=== PATIENT | male | born 1930 | race Caucasian/White ===

== ENCOUNTER 2017-06-13 10:19 | Inpatient (IN) | payer OTHER, MEDICARE ==
[~2017-06-13] VITALS: Ht 167.6 cm; Wt 77.0 kg
[2017-06-13] MEDS ORDERED: ALUMINUM/MAGNESIUM/SIMETH (MAALOX MAX) 30 ML UDC PO PRN (11:45)
[2017-06-13] MEDS ORDERED: ONDANSETRON INJ 2 MG/ML 2 ML VIAL IV PRN (11:45)
[2017-06-13] MEDS ORDERED: MAGNESIUM HYDROXIDE SUSP 30 ML UDC PO PRN (11:45)
[2017-06-13 11:53] VITALS: BP 125/73; PULSE 76; TEMP 36.5; O2SAT 95
[2017-06-13] MEDS ORDERED: POLYETHYLENE (MIRALAX) 17 GM PACK PO PRN (12:00)
[2017-06-13 12:05] VITALS: BP 125/73; PULSE 76; TEMP 36.5; Ht 167.6 cm; Wt 77.0 kg
--- NOTE | 2017-06-13 13:30 | History and Physical ---
History & Physical Date & Time of Service: Jun 13, 2017 at 12:45 Chief Complaint: Altered Mental Status Primary Care Physician: Parth Huston M.D. History of Present Illness Source: patient, hospital records 86 y/o M - history of HTN, hyperthyroidism, CKD, BPH, dementia. Presents as a direct admission from [facility]. Initially presented to [facility] due to reported confusion and progressive weakness. The pt, per EMS, was disheveled and covered in urine and feces when they picked him up at home. Initial labs indicated dehydration, ARF and rhabdomyolysis. The pt denies all symptoms aside from pain in the joints of his lower extremities which he states is chronic. He is not a reliable historian and cannot contribute meaningfully to the HPI. Past Medical/Surgical History 1) HTN 2) BPH 3) Hyperthyroidism 4) Lower extremity insufficiency and edema 5) CKD - unspecified Family History Could not obtain Social History Does not smoke or drink Smoking Status: Unknown if Ever Smoked Allergies Coded Allergies: Tramadol (Verified Allergy, Unknown, RASH, 06/13/17) Home Medications Scheduled Carvedilol (Coreg), 1 TAB PO BID Hydrochlorothiazide (Hydrochlorothiazide), 1 TAB PO DAILY Oxybutynin Chloride (Ditropan), 2 TAB PO BID Miscellaneous Medications Methimazole (Methimazole ) Tamsulosin HCl (Tamsulosin HCl) Review of Systems Pt cannot recall previous symptoms and did not know why he was in the hospital - as above, he c/o lower extremity pain only. Physical Exam Vital Signs Date Time Temp Pulse Resp B/P (MAP) Pulse Ox O2 Delivery O2 Flow Rate FiO2 06/13/17 12:05 36.5 76 16 125/73 Room Air 06/13/17 11:53 36.5 76 16 125/73 (90) 95 Room Air General Appearance: + pertinent finding (Pleasant, overweight, elderly male in no distress - Pt is talkative and in high-spririted) Head: normocephalic Eyes: normal inspection, EOMI ENT: + pertinent finding (Poor dentition) Neck: supple, no JVD Respiratory/Chest: chest non-tender, lungs clear, normal breath sounds Cardiovascular: no edema, no gallop, + irregularly irregular Abdomen/GI: normal bowel sounds, non tender, soft Back: normal inspection, no CVA tenderness Extremities/Musculoskelatal: + pedal edema, + pertinent finding (Stasis changes of the lower extremities, multiple ulcers of the feet, some of which are necrotis - no exudate or overt cellulitis) 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 Presents as a direct admission from [facility]. Initially presented to [facility] due to reported confusion and progressive weakness. The pt, per EMS, was disheveled and covered in urine and feces when they picked him up at home. Initial labs indicated dehydration, ARF and rhabdomyolysis. The pt denies all symptoms aside from pain in the joints of his lower extremities which he states is chronic. He is not a reliable historian and cannot contribute meaningfully to the HPI. 1) ARF, dehydration - Received IVF for several hours prior to transfer. Initial creat was 3.6, njow 2.8 - we do not have a baseline at present and suspect underlying CKD. We will continue IVF, hold diuretics and trend BMP. Urine lytes will be ordered. 2) Rhabdomyolysis - Initial CK 2600, now 595 - cont IVF - recheck AM. 3) HTN - Cont Carvedilol 4) Hyperthyroidism - Cont Methimazole - will check TSH 5) BPH - cont Flomax 6) Foot ulcers with necrosis - will consult wound care and podiatry or ortho. 7) Anemia - no evidence of bleeding - suspected chronic - will trend 8) At the time of admission, we have not received a call from the pt's family. It was apparently requested that the pt be placed in a nursing facility. Per sign out from [facility], he lives with a son who suffers from cognitive dysfunction. Full code - Heparin prophylaxis Total time for this admit including review of labs, meds, outside records - discussion with pt and transferring attending - 38 min Level of Care Med/Surg Advanced Directives Existing Living Will: Yes Existing Power of Server Manager: Yes Resuscitation Status FULL RESUSCITATION VTE Prophylaxis VTE Risk Assessment Done? Y/N: Yes Risk Level: Low Given or contraindicated: Unfractionated heparin SQ
[2017-06-13] MEDS ORDERED: PATIENT'S ALLERGY INFO NEEDS ENTERED SCH (13:45)
[2017-06-13] MEDS ORDERED: CARV25TA2 PO (14:21)
[2017-06-13] MEDS ORDERED: DTR/5 PO (14:21)
[2017-06-13] MEDS ORDERED: FLM4 (14:21)
[2017-06-13] MEDS ORDERED: HYDR12.55 PO (14:21)
[2017-06-13] MEDS ORDERED: METH-589 (14:21)
[2017-06-13] MEDS: SODIUM CHLORIDE 0.9% 1000ML 1,000 ML IV SCH (14:33)
[2017-06-13 15:57] VITALS: BP 126/61; PULSE 90; TEMP 36.8; O2SAT 98
[2017-06-13] MEDS: CARVEDILOL 25 MG TAB PO SCH (20:39)
[2017-06-13] MEDS: OXYBUTYNIN CHLORIDE 5 MG TAB PO SCH (20:39)
[2017-06-13 22:07] LABS: CREATININE RANDOM URINE 42.6 mg/dl
[2017-06-14 00:06] VITALS: BP 114/64; PULSE 78; TEMP 37; O2SAT 98
[2017-06-14] MEDS: SODIUM CHLORIDE 0.9% 1000ML 1,000 ML IV SCH (03:05)
[2017-06-14 06:49] LABS: BLOOD UREA NITROGEN 62 mg/dl (7-18); CALCIUM 8.6 mg/dl (8.5-10.1); CARBON DIOXIDE 18 mmol/L (21-32); CREATININE 2.17 mg/dl (0.60-1.40); GLUCOSE 131 mg/dl (70-99); POTASSIUM 4.1 mmol/L (3.5-5.1); SODIUM 146 mmol/L (136-145)
[2017-06-14 07:00] LABS: PHOSPHORUS 2.5 mg/dl (2.5-4.9)
[2017-06-14] MEDS: METHIMAZOLE 5 MG TAB PO SCH (07:39)
[2017-06-14] MEDS: TAMSULOSIN HCL 0.4 MG CAP PO SCH (07:39)
[2017-06-14] MEDS: OXYBUTYNIN CHLORIDE 5 MG TAB PO SCH ×2 (07:40→20:31)
[2017-06-14] MEDS: CARVEDILOL 25 MG TAB PO SCH ×2 (07:40→20:32)
[2017-06-14 07:46] VITALS: BP 121/56; PULSE 95; TEMP 36.7; O2SAT 99
[2017-06-14] MEDS ORDERED: VANCOMYCIN INJ 1,000 MG in SODIUM CHLORIDE 0.9% 250ML 250 ML IV STA (10:14)
[2017-06-14] MEDS ORDERED: VANCOMYCIN INJ 2,000 MG in SODIUM CHLORIDE 0.9% 500ML 500 ML IV STA (10:43)
[2017-06-14] MEDS ORDERED: VANCOMYCIN CONSULT ACTIVE PRN (10:45)
[2017-06-14 11:26] VITALS: BP 173/71; PULSE 92; TEMP 37; O2SAT 98
--- NOTE | 2017-06-14 12:04 | DIAGNOSTIC IMAGING REPORT ---
FOOT MIN 3 VIEWS ROUTINE CLINICAL HISTORY: r/o osteomyelitis pain COMPARISON: None. DISCUSSION: Severe degenerative change of all major osseous structures. Hypertrophic bony formation about the metatarsophalangeal and interphalangeal joint of the great toe. No well-defined lytic or blastic process. Mild soft tissue edema. Heel spur. Generalized decrease in bony mineralization. There is no evidence for soft tissue swelling. IMPRESSION: Severe degenerative change. No definitive evidence for osteomyelitis. The above report was generated using voice recognition software. It may contain grammatical, syntax or spelling errors. Electronically signed by: Gilbert Nails M.D. 06/14/2017 12:03 PM Dictated Date/Time: 06/14/2017 12:02 PM
[2017-06-14] MEDS: CEFTRIAXONE SOD INJ 2,000 MG in DEXTROSE 5% 50ML 50 ML IV SCH (12:21)
--- NOTE | 2017-06-14 14:19 | DIAGNOSTIC IMAGING REPORT ---
ART DOP LOWER EXT BILAT CLINICAL HISTORY: lack of pedal pulses COMPARISON STUDY: Findings: Monophasic waveforms throughout the arterial structures bilaterally. Increased velocities of the proximal superficial femoral arteries. Calcified plaque formation bilaterally. High-grade stenosis and/or occlusion right popliteal artery. Occlusion right peroneal as well as left posterior tibial artery. Blood pressure indices could not be obtained due to patient motion and a permanent bones/skin ulcerations. IMPRESSION: 1. High-grade arterial occlusive change throughout all major arterial structures of the thigh and lower legs. 2. Focal occlusion and distal partial reconstitution right popliteal artery 3. Probable occlusion right peroneal and left posterior tibial arteries. 4. Dampened blood flow characteristics from the knees to ankles bilaterally. The above report was generated using voice recognition software. It may contain grammatical, syntax or spelling errors. Electronically signed by: Gilbert Nails M.D. 06/14/2017 2:17 PM Dictated Date/Time: 06/14/2017 2:14 PM
[2017-06-14 15:47] VITALS: BP 142/65; PULSE 99; TEMP 36.8; O2SAT 98
--- NOTE | 2017-06-14 16:07 | Hospitalist Progress Note ---
Hospitalist Progress Note Date of Service Jun 14, 2017. (Nury Glez CRNP) Subjective Pt evaluation today including: conversation w/ patient, physical exam, chart review, lab review Voiding: no voiding problems Mr. Ramirez does not have complaints. He cannot feel any pain from his toe wound ROS Constitutional: no chills, aches, sweats or fever Respiratory: no sob,cough, sputum, or wheezing Cardiac: no chest pain, palpitations, edema, orthopnea or lightheadedness GI: no abdominal pain, nausea, vomiting, diarrhea or constipation : no dysuria or hesitancy Extremities: no joint pain or weakness Skin: no rash All other systems reviewed and negative (Nury Glez CRNP) Medications Medications Administered Medications (Trade) Dose Ordered Sig/Carina Route Start Time Stop Time Status Last Admin Dose Admin Sodium Chloride 1,000 ml @ 80 mls/hr [id number] IV 06/13/17 14:15 06/14/17 15:14 DC 06/14/17 03:05 80 MLS/HR Carvedilol (Coreg Tab) 25 mg BID PO 06/13/17 21:00 07/13/17 20:59 06/14/17 07:40 25 MG Oxybutynin Chloride (Ditropan Tab) 10 mg BID PO 06/13/17 21:00 07/13/17 20:59 06/14/17 07:40 10 MG Tamsulosin HCl (Flomax Cap) 0.4 mg DAILY PO 06/14/17 09:00 07/14/17 08:59 06/14/17 07:39 0.4 MG Methimazole (Methimazole Tab) 5 mg DAILY PO 06/14/17 09:00 07/14/17 08:59 06/14/17 07:39 5 MG Ceftriaxone Sodium 2000 mg/ Dextrose 70 ml @ 100 mls/hr Q24H IV 06/14/17 11:00 07/26/17 10:59 06/14/17 12:21 100 MLS/HR Vancomycin HCl 2000 mg/Sodium Chloride 540 ml @ 200 mls/hr NOW STAT IV 06/14/17 10:43 06/14/17 13:24 DC 06/14/17 12:21 200 MLS/HR (Nury Glez CRNP) Objective Vital Signs Date Time Temp Pulse Resp B/P (MAP) Pulse Ox O2 Delivery O2 Flow Rate FiO2 06/14/17 12:00 Room Air 06/14/17 11:26 37.0 92 20 173/71 (105) 98 06/14/17 08:00 Room Air 06/14/17 07:46 36.7 95 20 121/56 (77) 99 06/14/17 00:06 37.0 78 18 114/64 (81) 98 Room Air 06/14/17 00:00 Room Air 06/13/17 16:00 Room Air 06/13/17 15:57 36.8 90 16 126/61 (82) 98 Room Air (Nury Glez CRNP) Physical Exam Notes: General: no distress Eyes: normal inspection, PERLL Respiratory: chest non tender, clear to auscultation, normal breath sounds, no respiratory distress, no accessory muscle use Cardiac: regular rate and rhythm, no rub or gallop, no murmur, no edema, no jvd GI/: active bowel sounds, no abd pain or tenderness, soft, non distended Extremities: normal range of motion, normal strength, non tender Neuro/Psych: alert and oriented x 3, normal mood and affect Skin: normal color, dry, left great toe purulent drainage following removal of eschar, stage two bilateral buttocks decubitus (Nury Glez CRNP) Laboratory Results Last 24 Hours Test 06/13/17 20:41 06/14/17 05:59 Urine Random Creatinine 42.6 mg/dl Urine Random Sodium 94 mEq/L Hemoglobin 10.7 g/dL Sodium Level 146 mmol/L Potassium Level 4.1 mmol/L Chloride Level 117 mmol/L Carbon Dioxide Level 18 mmol/L Anion Gap 11.0 mmol/L Blood Urea Nitrogen 62 mg/dl Creatinine 2.17 mg/dl Est Creatinine Clear Calc Drug Dose 23.0 ml/min Estimated GFR () 30.4 Estimated GFR (Non- 26.2 BUN/Creatinine Ratio 28.6 Random Glucose 131 mg/dl Calcium Level 8.6 mg/dl Phosphorus Level 2.5 mg/dl Magnesium Level 1.7 mg/dl Thyroid Stimulating Hormone (TSH) < 0.005 uIu/ml Free Thyroxine 1.79 ng/dl (Nury Glez CRNP) Assessment and Plan Mr. Ramirez is an 86 year old man here for confusion, weakness, dehydration, left toe infection, ARF, and rhabdomyolysis ARF, dehydration - Initial creat was 3.6, now 2.17 - we do not have a baseline at present and suspect underlying CKD. - patient received two bags of gentle IVF - hold on further as patient is taking po - repeat prp in am Cellulitis vs osteomyelitis left great toe, foot ulcers, sacral decubitus - Wound care - consult ortho - Foot x ray did not show osteomyelitis - MRI PVD - multiple areas of arterial occlusion on LE arterial US, no palpable pedal pulses, - consult vascular surgery Rhabdomyolysis - Initial CK 2600, now 595 - recheck ck tonight and am HTN - Cont Carvedilol Hyperthyroidism - TSH .005, T4 1.79 - likely patient was not compliant with medications - continue methimazole and recheck in a few weeks of constant dosing BPH - cont Flomax Anemia - no evidence of bleeding - suspected chronic - will trend Dispo: PT/OT ordered, CM. Given patient's situation he was found in, seems likely that he will need placement on discharge. Full code (Nury Glez CRNP) i personally examined pt and verified all cueto points jose ALBERT no new complaints. as above vitals noted, laying in bed, buttocks ulcers fortunately fairly shallow, foot ulcerations appearing deep and necrotic failure to thrive at home -uncertain home situation, but with ulcers and presumed medication nonadherence , and significant comorbidities at this time, home environment does not appear safe to meet his needs at this point. -medically manage all as above -PT/OT, social media manager evals DVT proph -heparin SQ otherwise as above (Tesfaye Calvo D.O.)
--- NOTE | 2017-06-14 18:26 | Orthopedic Consultation ---
Orthopedic Consultation Date of Consultation: Jun 14, 2017. Attending Physician: Tesfaye Calvo D.O. Reason for Consultation: Left great toe and heel pressure sores History of Present Illness Patient presents with foot problems bilaterally Social History Smoking Status: Unknown if Ever Smoked Allergies Coded Allergies: Tramadol (Verified Allergy, Unknown, RASH, 06/13/17) Home Medications Scheduled Carvedilol (Coreg), 1 TAB PO BID Hydrochlorothiazide (Hydrochlorothiazide), 1 TAB PO DAILY Oxybutynin Chloride (Ditropan), 2 TAB PO BID Miscellaneous Medications Methimazole (Methimazole ) Tamsulosin HCl (Tamsulosin HCl) Current Inpatient Medications Current Inpatient Medications Medications (Trade) Dose Ordered Sig/Carina Route Start Time Stop Time Status Last Admin Dose Admin Acetaminophen (Tylenol Tab) 650 mg Q4H PRN PO 06/13/17 11:45 07/13/17 11:44 Al Hydrox/Mg Hydrox/Simethicone (Maalox Max Susp) 15 ml Q4H PRN PO 06/13/17 11:45 07/13/17 11:44 Magnesium Hydroxide (Milk Of Magnesia Susp) 30 ml Q6H PRN PO 06/13/17 11:45 07/13/17 11:44 Polyethylene (Miralax Powder Packet) 17 gm DAILY PRN PO 06/13/17 12:00 07/13/17 11:59 Ondansetron HCl (Zofran Inj) 4 mg Q6H PRN IV 06/13/17 11:45 07/13/17 11:44 Carvedilol (Coreg Tab) 25 mg BID PO 06/13/17 21:00 07/13/17 20:59 06/14/17 07:40 25 MG Oxybutynin Chloride (Ditropan Tab) 10 mg BID PO 06/13/17 21:00 07/13/17 20:59 06/14/17 07:40 10 MG Tamsulosin HCl (Flomax Cap) 0.4 mg DAILY PO 06/14/17 09:00 07/14/17 08:59 06/14/17 07:39 0.4 MG Methimazole (Methimazole Tab) 5 mg DAILY PO 06/14/17 09:00 07/14/17 08:59 06/14/17 07:39 5 MG Ceftriaxone Sodium 2000 mg/ Dextrose 70 ml @ 100 mls/hr Q24H IV 06/14/17 11:00 07/26/17 10:59 06/14/17 12:21 100 MLS/HR Vancomycin HCl (Consult) 1 ea UD PRN N/A 06/14/17 10:45 07/14/17 10:44 Physical Exam Date Time Temp Pulse Resp B/P (MAP) Pulse Ox O2 Delivery O2 Flow Rate FiO2 06/14/17 16:00 Room Air 06/14/17 15:47 36.8 99 20 142/65 (90) 98 Room Air 06/14/17 12:00 Room Air 06/14/17 11:26 37.0 92 20 173/71 (105) 98 06/14/17 08:00 Room Air 06/14/17 07:46 36.7 95 20 121/56 (77) 99 06/14/17 00:06 37.0 78 18 114/64 (81) 98 Room Air 06/14/17 00:00 Room Air General Appearance: no apparent distress Head: normocephalic Eyes: normal inspection Extremities/Musculoskelatal: + pertinent finding (right lower extremity demonstrates poor capillary refill chronic red discoloration of the toes consistent with peripheral vascular disease and dependent rubor type findings. Great toe has a scab area of superficial necrotic skin over the dorsal IP joint area. No drainage or signs of infection. Left foot demonstrates that there is a area of follow-up skin necrosis tip of the left great toe no drainage no erythema with chronic red discoloration of the foot due to peripheral vascular disease and poor capillary refill and a large area of necrosis over the heel likely full-thickness necrotic skin of the left heel with no current evidence of any infection at this time. There is no drainage from the great toe or the heel areas of skin necrosis. He also has multiple scabs on the area of the pretibial lower tibial area all consistent with chronic peripheral vascular disease changes.) Laboratory Results Last 24 Hours Test 06/13/17 20:41 06/14/17 05:59 06/14/17 16:07 Urine Random Creatinine 42.6 mg/dl Urine Random Sodium 94 mEq/L Hemoglobin 10.7 g/dL Sodium Level 146 mmol/L Potassium Level 4.1 mmol/L Chloride Level 117 mmol/L Carbon Dioxide Level 18 mmol/L Anion Gap 11.0 mmol/L Blood Urea Nitrogen 62 mg/dl Creatinine 2.17 mg/dl Est Creatinine Clear Calc Drug Dose 23.0 ml/min Estimated GFR () 30.4 Estimated GFR (Non- 26.2 BUN/Creatinine Ratio 28.6 Random Glucose 131 mg/dl Calcium Level 8.6 mg/dl Phosphorus Level 2.5 mg/dl Magnesium Level 1.7 mg/dl Thyroid Stimulating Hormone (TSH) < 0.005 uIu/ml Free Thyroxine 1.79 ng/dl Total Creatine Kinase 3457 U/L Assessment & Plan Skin necrosis due to peripheral vascular disease significant peripheral vascular disease both lower extremities. No signs of active infection. Patient has severe degenerative changes on x-ray and periarticular calcifications possible gout. At this time I'm deferring treatment to vascular surgery. No urgent surgery indicated from orthopedic standpoint and if surgery is contemplated which patient does not want at this time then this would have to be performed by foot and ankle specialist. Dr. Varghese will not be in town until next week.
[2017-06-14 19:28] LABS: INR 1.2 (0.9-1.1)
[2017-06-14 20:16] VITALS: BP 161/74; PULSE 87; TEMP 37.4; O2SAT 98
[2017-06-14] MEDS: HEPARIN SOD 5000 UNIT/0.5 ML CARP SQ SCH (20:55)
[2017-06-15] VITALS (8 sets, daily range): BP systolic 118–153; BP diastolic 61–77; PULSE 64–92; TEMP 36.4–37.2; O2SAT 95–98
[2017-06-15 08:03] LABS: HEMATOCRIT 29.9 % (42-52); HEMOGLOBIN 10.1 g/dL (14.0-18.0); MEAN CELL VOLUME 89.8 fL (80-100); MEAN CORPUSCULAR HEMOGLOBIN 30.3 pg (25-34); MEAN CORPUSCULAR HGB CONC 33.8 g/dl (32-36); MEAN PLATELET VOLUME 10.1 fL (7.4-10.4); PLATELET COUNT 207 K/uL (130-400); RED CELL DISTRIBUTION WIDTH CV 14.2 % (11.5-14.5); RED CELL DISTRIBUTION WIDTH SD 47.1 fL (36.4-46.3); WHITE BLOOD COUNT 8.62 K/uL (4.8-10.8)
[2017-06-15] MEDS: CARVEDILOL 25 MG TAB PO SCH ×2 (08:08→20:52)
[2017-06-15] MEDS: TAMSULOSIN HCL 0.4 MG CAP PO SCH (08:08)
[2017-06-15] MEDS: METHIMAZOLE 5 MG TAB PO SCH (08:08)
[2017-06-15] MEDS: OXYBUTYNIN CHLORIDE 5 MG TAB PO SCH ×2 (08:09→20:53)
[2017-06-15] MEDS: HEPARIN SOD 5000 UNIT/0.5 ML CARP SQ SCH ×2 (08:11→21:00)
[2017-06-15 08:34] LABS: CALCIUM 8.9 mg/dl (8.5-10.1); CREATININE 1.68 mg/dl (0.60-1.40); POTASSIUM 3.9 mmol/L (3.5-5.1)
--- NOTE | 2017-06-15 09:20 | Clinical Documentation Query ---
QUERY 1 OF [address] LOJA, A discrepancy is noted in the clinical record. Progress note 06/14 indicates pt with stage 2 bilateral buttocks decub. WOCN documentation reflects: L buttocks deep tissue injury and R buttocks stage 3 pressure ulcer as well as L heel unstageable pressure ulcer and L medial 1st metatarsal deep tissue injury. In your clinical opinion is this patient being managed for: ( ) Pressure ulcer of R buttock, stage 3 ( x) Pressure ulcer of L buttocks, unstageable (x ) Pressure ulcer L heel, unstageable ( ) Pressure ulcer L medial 1st metatarsal, unstageable ( ) Not Agree ( ) Other explanation of clinical findings (Please Explain) ( ) Unable to determine (Please Define) ( ) Need to Discuss The medical record reflects the following clinical findings, treatment, and risk factors. Clinical Indicators: as above Treatment: WOCN consult, Non-Adhesive Foam with Hydrofiber With Silver, recommendation for wound physician consult Risk Factors:home environment, dementia, CKD, HTN, QUERY 2 OF 2 In your clinical opinion is this patient being managed for: (x ) Arterial ulcers L 4th toe, L 1st toe ( ) Not Agree ( ) Other explanation of clinical findings (Please Explain) ( ) Unable to determine (Please Define) ( ) Need to Discuss The medical record reflects the following clinical findings, treatment, and risk factors. Clinical Indicators: WOCN documentation notes additional ulcers on multiple L toes Treatment:L 4th toe and L 1st toe--nonadhesive foam and hydrofiber with silver, WOCN consult, pending vascular surgery consult Risk Factors: age, home environment, HTN, suspected CKD, PVD Please clarify and document your clinical opinion in the progress notes and discharge summary. Terms such as "probable", "suspected", "likely", "questionable", "possible", or "still to be ruled out" are acceptable. IF IN AGREEMENT, YOU MUST DOCUMENT ABOVE DIAGNOSTIC STATEMENT IN DAILY PROGRESS NOTES AND DISCHARGE SUMMARY. This document is not part of the patient's record. Thank You, Blanca Lechuga, MATTHEW [phone]
--- NOTE | 2017-06-15 09:23 | Clinical Documentation Query ---
QUERY 1 OF 2 CLINICAL DOCUMENTATION QUERY Ms. SWARTZ, A discrepancy is noted in the clinical record. Progress note 06/14 indicates pt with stage 2 bilateral buttocks decub. WOCN documentation reflects: L buttocks deep tissue injury and R buttocks stage 3 pressure ulcer as well as L heel unstageable pressure ulcer and L medial 1st metatarsal deep tissue injury. In your clinical opinion is this patient being managed for: ( ) Pressure ulcer of R buttock, stage 3 ( ) Pressure ulcer of L buttocks, unstageable ( ) Pressure ulcer L heel, unstageable ( ) Pressure ulcer L medial 1st metatarsal, unstageable ( ) Not Agree ( ) Other explanation of clinical findings (Please Explain) ( ) Unable to determine (Please Define) ( ) Need to Discuss The medical record reflects the following clinical findings, treatment, and risk factors. Clinical Indicators: as above Treatment: WOCN consult, Non-Adhesive Foam with Hydrofiber With Silver, recommendation for wound physician consult Risk Factors:home environment, dementia, CKD, HTN, QUERY 2 OF 2 In your clinical opinion is this patient being managed for: ( ) Arterial ulcers L 4th toe, L 1st toe ( ) Not Agree ( ) Other explanation of clinical findings (Please Explain) ( ) Unable to determine (Please Define) ( ) Need to Discuss The medical record reflects the following clinical findings, treatment, and risk factors. Clinical Indicators: WOCN documentation notes additional ulcers on multiple L toes Treatment:L 4th toe and L 1st toe--nonadhesive foam and hydrofiber with silver, WOCN consult, pending vascular surgery consult Risk Factors: age, home environment, HTN, suspected CKD, PVD Please clarify and document your clinical opinion in the progress notes and discharge summary. Terms such as "probable", "suspected", "likely", "questionable", "possible", or "still to be ruled out" are acceptable. IF IN AGREEMENT, YOU MUST DOCUMENT ABOVE DIAGNOSTIC STATEMENT IN DAILY PROGRESS NOTES AND DISCHARGE SUMMARY. This document is not part of the patient's record. Thank You, Blanca Lechuga, RN [phone]
[2017-06-15 09:40] LABS: HEMOGLOBIN A1C 7.2 % (4.5-5.6)
--- NOTE | 2017-06-15 09:51 | Surgery Consultation ---
Consultation Date of Service Jun 15, 2017. Chief Complaint PAD, BLE wounds History of Present Illness The patient is a 86 year old male with hx of HTN, thyroid disease, and DM and chronic kidney disease (per pt), admitted after a change in mental status and being found at home lying on floor, seen in consultation today for LLE wounds and PAD on US. Pt denies any recollection of this, and is oriented presently. Denies known injury to feet, but states he was at [facility] or [facility] in 07/2016 and when he was discharged, he noted bruising to his feet that was not there prior. Admits pain in l foot, but states that has been chronic as well. Admits some calf pain with ambulation, but states it does not make him stop walking. Denies rest pain or prior knowledge of arterial disease. Pt denies CONNOLLY, fever, chills, recent illness, chest pain, SOB, abd pain , N/V, other complaints. Pt is independent at home and ambulates. US demonstrates diffuse arterial disease BLE, possible distal SFA/pop stenosis BLE, and severe distal disease. No definite osteomyelitis noted on x rya. Vitals Vital Signs Past 12 Hours Date Time Temp Pulse Resp B/P (MAP) Pulse Ox O2 Delivery O2 Flow Rate FiO2 06/15/17 08:15 98 Room Air 06/15/17 07:21 37.2 81 16 145/61 (89) 95 06/15/17 00:49 36.8 92 20 153/73 (99) 96 Room Air 06/15/17 00:30 98 Room Air 06/15/17 00:07 36.9 84 16 149/77 (101) 98 Room Air Allergies Coded Allergies: Tramadol (Verified Allergy, Unknown, RASH, 06/13/17) Home Medications Scheduled Carvedilol (Coreg), 1 TAB PO BID Hydrochlorothiazide (Hydrochlorothiazide), 1 TAB PO DAILY Oxybutynin Chloride (Ditropan), 2 TAB PO BID Miscellaneous Medications Methimazole (Methimazole ) Tamsulosin HCl (Tamsulosin HCl) Problem List Medical Problems: (1) Altered mental status Surgical / Medical History Hx Cardiac Surgery: No Hx Abdominal Surgery: No Hx Cancer Surgery: No Hx Thoracic Surgery: No Hx Orthopedic: No Hx Urinary Tract Surgery: No HX Other Surgery: No Past Medical/Surgical History: Diabetes, Hypertension, Kidney Disease, Thyroid Disease Family History Noncontributory d/t age Social History Smoking Status: Unknown if Ever Smoked Hx Tobacco Use In Past Year?: No Hx Alcohol Use - Type & Amnt: No Hx Substance Use -Type & Amnt: No Review of Systems Constitutional: No chills, No fever, No malaise Skin: No change in color Eyes: No visual changes ENMT: No sore throat Respiratory: No cough, No PINON, No hemoptysis, No short of breath Cardiovascular: No chest pain, No palpitations, No syncope, No edema, No intermittent claudication Gastrointestinal: No abdominal pain, No nausea, No vomiting Neurologic: No dizziness, No lethargy, No numbness, No tingling Physical Exam Constitutional: General Apperance: well-nourished, well-developed Level of Distress: NAD, chronically ill Psychiatric: Mental Status: active & alert, normal mood, normal affect Orientation: oriented except where noted, to time, to place, to person Memory: recent memory normal, remote memory normal Head: normocephalic, atraumatic Eyes: EOM: EOMI ENMT: normal ENT inspection, hearing grossly normal Neck: supple, trachea midline Lungs: Respiratory effort: no dyspnea Auscultation: no rales/crackles, no rhonchi, decreased breath sounds Cardiovascular: Apical Impulse: not displaced Heart Auscultation: RRR, no rubs, no gallops, murmur Peripheral Pulses: Pulses: full and equal, in all extremities except if noted Bruits: none appreciated Carotid Pulse: normal on the left, normal on the right Brachial Pulses: normal on the left, normal on the right Radial Pulse: normal on the left, normal on the right Femoral Pulse: decreased on the left, decreased on the right (+2 BLE) Posterior Tibialis Pulse: pertinent finding (Nonpalpable BLE) Dorsalis Pedis Pulse: pertinent finding (Nonpalpable BLE) Abdomen: Bowel Sounds: normal Inspection & Palpation: soft, non-distended, no tenderness, guarding & rebound Musculoskeletal: normal strength (5/5 throughout), normal tone Extremities: Upper Right: no cyanosis, no edema, no varicosities Upper Left: no cyanosis, no edema, no varicosities Lower Right: no cyanosis, no varicosities, no palpable cord, ulcers (R foot , with small eschar) Lower Left: no edema, no varicosities, no palpable cord, gangrene (L great toe tip, MTP joint and large area on heel. No fluctuance noted, however, purulent discharge expressed from MTP joint and sent for culture. + local erythema to all necrotic areas. Toes with delayed cap refill) Neurologic: Cranial Nerves: grossly intact Assessment and Plan ASSESSMENT and PLAN: PAD BLE wounds Pt with significant LLE wounds which may require surgical debridement. Culture obtained from purulent discharge from L MTP joint. Severity of PAD difficult to eval on current US. Will have Dr Palafox review US tomorrow morning when he returns from [facility]. Pt also with CKD and GFR of 35, which may preclude endovascular intervention. Will make pt NPO tonight until reeval tomorrow morning. Pt agreeable. Discussed with medicine as well.
--- NOTE | 2017-06-15 10:07 | Pharmacy Progress Note ---
Pharmacy Abx Initial Consult Date of Service Jun 15, 2017. Pharmacy Dosing Scope Date of Consult: 06/14/17 Consultation requested by: Nury Glez Pharmacy is consulted to initiate Vancomycin IV dosing therapy for osteomyelitis , order appropriate labs and adjust drug dose/frequency. Subjective The patient is a 86 year old male admitted on Jun 13, 2017 at 11:04. Objective Height (Feet): 5 Height (Inches): 6.00 Weight (Kilograms): 77.000 Vital Signs (Past 12Hrs) Vital Signs Past 12 Hours Date Time Temp Pulse Resp B/P (MAP) Pulse Ox O2 Delivery O2 Flow Rate FiO2 06/15/17 08:15 98 Room Air 06/15/17 07:21 37.2 81 16 145/61 (89) 95 06/15/17 00:49 36.8 92 20 153/73 (99) 96 Room Air 06/15/17 00:30 98 Room Air 06/15/17 00:07 36.9 84 16 149/77 (101) 98 Room Air Lab Results (24Hrs) Laboratory Tests (24 Hours) Test 06/15/17 07:24 Total Creatine Kinase 1902 U/L (39-308) H White Blood Count 8.62 K/uL (4.8-10.8) Micro Results Date/Time Source Procedure Growth Status 06/14/17 11:06 Blood Blood Culture Pending Received 06/14/17 10:53 Blood Blood Culture Pending Received 06/15/17 09:23 Drainage - Surface Foot Left Gram Stain Pending Received 06/15/17 09:23 Drainage - Surface Foot Left Wound Culture Pending Received 06/14/17 10:00 Skin Buttock Gram Stain - Final Resulted 06/14/17 10:00 Skin Buttock Wound Culture Pending Resulted 06/14/17 10:00 Drainage - Surface Toe Left 1 Gram Stain - Final Resulted 06/14/17 10:00 Wound Culture - Preliminary Staphylococcus Aureus Resulted Risk Factors for Resistance * Hospitalization for 48 hours or more within the past 90 days (Direct admission from [facility] -- admission there 06/12/17) Assessment & Plan Assessment 86 year old male * in ATIYA upon admission from [facility] (serum creat. 2.17mg/dL , serum creat. 1.68 06/14/17) but has improved. Baseline serum creat. is unknown * ATIYA versus CKD due to unknown serum creat. baseline * h/o lower extremity insufficiency and edema Plan Pharmacy has been consulted for treatment of bone and joint infection Vancomycin IV * Loading dose: 2000 mg (26 mg/kg) * Maintenance dose: 1250 mg IV (16 mg/kg) every 30 hours * Estimated p'kinetic levels [using serum creat. 1.68mg/dL]: ke= 0.029/hr, t1/2 = 24 hrs * Goal trough level for osteomyelitis : 15 to 20 mcg/mL * Trough level ordered for 06/18/17 ~30 minutes before the 3rd maintenance dose * A less than traditional dose and/or extended dosing interval have been selected due to likelihood of drug accumulation in patient with suspected h/o CKD. * Pharmacy to adjust dose and/or frequency if renal function improves or worsens prior to trough draw. Pharmacy will continue to follow and will adjust dose/frequency as necessary. Thank you.
[2017-06-15] MEDS: SODIUM CHLORIDE 0.9% 1000ML 1,000 ML IV SCH (11:07)
[2017-06-15] MEDS: CEFTRIAXONE SOD INJ 2,000 MG in DEXTROSE 5% 50ML 50 ML IV SCH (11:09)
--- NOTE | 2017-06-15 12:37 | Hospitalist Progress Note ---
Hospitalist Progress Note Date of Service Jun 15, 2017. (Nury Glez CRNP) Objective Vital Signs Date Time Temp Pulse Resp B/P (MAP) Pulse Ox O2 Delivery O2 Flow Rate FiO2 06/15/17 08:15 98 Room Air 06/15/17 07:21 37.2 81 16 145/61 (89) 95 06/15/17 00:49 36.8 92 20 153/73 (99) 96 Room Air 06/15/17 00:30 98 Room Air 06/15/17 00:07 36.9 84 16 149/77 (101) 98 Room Air 06/14/17 20:16 37.4 87 18 161/74 (103) 98 Room Air 06/14/17 16:00 Room Air 06/14/17 15:47 36.8 99 20 142/65 (90) 98 Room Air (uNry Glez CRNP) Laboratory Results Last 24 Hours Test 06/14/17 16:07 06/14/17 18:57 06/15/17 07:24 Total Creatine Kinase 3457 U/L 1902 U/L Prothrombin Time 12.2 SECONDS Prothromb Time International Ratio 1.2 White Blood Count 8.62 K/uL Red Blood Count 3.33 M/uL Hemoglobin 10.1 g/dL Hematocrit 29.9 % Mean Corpuscular Volume 89.8 fL Mean Corpuscular Hemoglobin 30.3 pg Mean Corpuscular Hemoglobin Concent 33.8 g/dl RDW Standard Deviation 47.1 fL RDW Coefficient of Variation 14.2 % Platelet Count 207 K/uL Mean Platelet Volume 10.1 fL Sodium Level 144 mmol/L Potassium Level 3.9 mmol/L Chloride Level 115 mmol/L Carbon Dioxide Level 19 mmol/L Anion Gap 10.0 mmol/L Blood Urea Nitrogen 41 mg/dl Creatinine 1.68 mg/dl Est Creatinine Clear Calc Drug Dose 29.7 ml/min Estimated GFR () 41.4 Estimated GFR (Non- 35.7 BUN/Creatinine Ratio 24.4 Random Glucose 138 mg/dl Estimated Average Glucose 160 mg/dl Hemoglobin A1c 7.2 % Calcium Level 8.9 mg/dl Triglycerides Level 117 mg/dl Cholesterol Level 89 mg/dl HDL Cholesterol 30 mg/dl LDL Cholesterol, Calculated 36 mg/dl VLDL Cholesterol, Calculated 23 mg/dl Cholesterol/HDL Ratio 3.0 (Nury Glez .[place]) Assessment and Plan Mr. Ramirez is an 86 year old man here for confusion, weakness, dehydration, left toe infection, ARF, and rhabdomyolysis ARF, dehydration - Initial creat was 3.6, continues to trend down - we do not have a baseline at present and suspect underlying CKD. - continue gentle IVF - repeat prp in am Left great toe arterial wound infection, foot ulcers, L buttocks deep tissue injury and R buttocks stage 3 pressure ulcer as well as L heel unstageable pressure ulcer and L medial 1st metatarsal deep tissue injury. - Wound care - consulted ortho - Foot x ray did not show osteomyelitis - MRI pending -Culture of great toe grew staph - continue vanco, rocephin until sensitivities resulted PVD - multiple areas of arterial occlusion on LE arterial US, no palpable pedal pulses, - consulted vascular surgery - possible procedure tomorrow morning, npo after midnight Rhabdomyolysis - Initial CK 2600, now 1900 - continue gentle IVF HTN - Cont Carvedilol Hyperthyroidism - TSH .005, T4 1.79 - likely patient was not compliant with medications - continue methimazole and recheck in a few weeks of constant dosing BPH - cont Flomax Anemia - no evidence of bleeding - suspected chronic - will trend Dispo: PT/OT ordered, CM. Given patient's situation he was found in, seems likely that he will need placement on discharge. Full code (Nury Glez, [place]) i personally examined pt and verified all cueto points w S Amaris ALBERT foot doesn't hurt now ongoing IV abx awaiting vascular input vitals noted nad breathin gunlabored no pallor or icterus PAD w ischemic foot infection -abx, vascular eval otherwise as above (Tesfaye Calvo D.O.)
[2017-06-15] MEDS ORDERED: VANCOMYCIN INJ 1,250 MG in SODIUM CHLORIDE 0.9% 250ML 250 ML IV SCH (18:00)
[2017-06-16] VITALS: O2SAT 98
[2017-06-16] MEDS: SODIUM CHLORIDE 0.9% 1000ML 1,000 ML IV SCH ×4 (04:52→23:48)
[2017-06-16 06:12] LABS: HEMATOCRIT 29.5 % (42-52); HEMOGLOBIN 9.9 g/dL (14.0-18.0); MEAN CELL VOLUME 89.1 fL (80-100); MEAN CORPUSCULAR HEMOGLOBIN 29.9 pg (25-34); MEAN CORPUSCULAR HGB CONC 33.6 g/dl (32-36); MEAN PLATELET VOLUME 9.8 fL (7.4-10.4); PLATELET COUNT 206 K/uL (130-400); RED CELL DISTRIBUTION WIDTH CV 13.8 % (11.5-14.5); RED CELL DISTRIBUTION WIDTH SD 45.2 fL (36.4-46.3); WHITE BLOOD COUNT 7.11 K/uL (4.8-10.8)
[2017-06-16 06:41] LABS: CALCIUM 8.3 mg/dl (8.5-10.1); CREATININE 1.59 mg/dl (0.60-1.40); POTASSIUM 3.9 mmol/L (3.5-5.1)
[2017-06-16 07:41] VITALS: BP 152/66; PULSE 81; TEMP 37; O2SAT 96
[2017-06-16] MEDS: HEPARIN SOD 5000 UNIT/0.5 ML CARP SQ SCH ×2 (08:45→21:26)
[2017-06-16] MEDS: METHIMAZOLE 5 MG TAB PO SCH (08:46)
[2017-06-16] MEDS: CARVEDILOL 25 MG TAB PO SCH ×2 (08:46→21:25)
[2017-06-16] MEDS: OXYBUTYNIN CHLORIDE 5 MG TAB PO SCH ×2 (08:46→21:26)
[2017-06-16] MEDS: TAMSULOSIN HCL 0.4 MG CAP PO SCH (08:46)
--- NOTE | 2017-06-16 09:29 | Progress Note ---
Progress Note Date of Service: Jun 16, 2017. Subjective 86 yo m with multiple medical problems, seen today for PAD and LLE foot wounds. Pt denies pain presently and states will not allow any "cutting" on his L foot. Imaging demonstrates likely L distal SFA/prox pop stenosis. Objective Vital Signs Vital Signs Past 12 Hours Date Time Temp Pulse Resp B/P (MAP) Pulse Ox O2 Delivery O2 Flow Rate FiO2 06/16/17 07:41 37.0 81 18 152/66 (94) 96 06/16/17 00:00 98 Room Air 06/15/17 23:26 36.7 64 18 146/73 (97) 96 Room Air Exam CONST: A&O x3, NAD, chronically ill appearing male EXT: BLE nonpalpable distal pulses. LLE foot wounds remain same. Laboratory and Microbiology Results Past 24 Hours Test 06/16/17 05:46 06/16/17 08:08 06/16/17 08:26 Range/Units White Blood Count 7.11 4.8-10.8 K/uL Red Blood Count 3.31 4.7-6.1 M/uL Hemoglobin 9.9 14.0-18.0 g/dL Hematocrit 29.5 42-52 % Mean Corpuscular Volume 89.1 80-100 fL Mean Corpuscular Hemoglobin 29.9 25-34 pg Mean Corpuscular Hemoglobin Concent 33.6 32-36 g/dl RDW Standard Deviation 45.2 36.4-46.3 fL RDW Coefficient of Variation 13.8 11.5-14.5 % Platelet Count 206 130-400 K/uL Mean Platelet Volume 9.8 7.4-10.4 fL Sodium Level 143 136-145 mmol/L Potassium Level 3.9 3.5-5.1 mmol/L Chloride Level 115 98-107 mmol/L Carbon Dioxide Level 18 21-32 mmol/L Anion Gap 9.0 3-11 mmol/L Blood Urea Nitrogen 37 7-18 mg/dl Creatinine 1.59 0.60-1.40 mg/dl Est Creatinine Clear Calc Drug Dose 31.4 ml/min Estimated GFR () 44.3 Estimated GFR (Non- 38.2 BUN/Creatinine Ratio 23.3 10-20 Random Glucose 118 70-99 mg/dl Calcium Level 8.3 8.5-10.1 mg/dl Random Vancomycin Level 18.2 mcg/ml Microbiology Results 06/15/17 Gram Stain - Final, Resulted 06/15/17 Wound Culture - Preliminary, Resulted Staphylococcus Aureus ASSESSMENT and PLAN: PAD LLE foot wounds Pt also seen by Dr Palafox today. Pt adamant about keeping his leg. Recommend pt undergo LLE angio with intervention next week d/t significant PAD with distal SFA lesion. D/T severity of LLE foot wounds and heel wound, recommend orthopedics reeval for possible surgical intervention and limb salvage. Discussed with NEREYDA Doran, he will discuss with attendings. Cx positive for MRSA, recommend ID consult.
[2017-06-16] MEDS: VANCOMYCIN INJ 1,000 MG in SODIUM CHLORIDE 0.9% 250ML 250 ML IV SCH (10:18)
--- NOTE | 2017-06-16 10:23 | Progress Note ---
Progress Note Date of Service Jun 16, 2017. Progress Note ID Consult Dictated #[id number] A/P: 1. PAD and foot ulcers - CA-MRSA -Can continue vanco for now as pt is npo pending decision regarding surgery, currently refusing on my exam -If not surgery planned and pt is to be d/c home would suggest doxy 100mg po bid with food x 21 days -thank you
--- NOTE | 2017-06-16 10:35 | INFECT. DISEASE CONSULTATION ---
DATE OF CONSULTATION: 06/16/2017 DATE OF CONSULTATION: 06/16/2017 HISTORY OF PRESENT ILLNESS: This is an 86-year-old gentleman who was transferred from [facility]. He was found to be confused and obtunded on initial visit. He was brought to the hospital by EMS. It is unclear to me how EMS was called to the home, however per the H&P, he was covered in urine and feces and was disheveled upon arrival to the hospital. He was found to be in acute renal failure and also rhabdomyolysis. He was subsequently transferred to [facility]. He does have lower extremity ulcers significant on the right foot including a necrotic heel ulcer. Superficial ulcer cultures were obtained and are growing community-acquired MRSA. The patient has been on vancomycin. His white blood cell count is normal. Sed rate was obtained today and is pending. Blood cultures from the Emergency Room are negative. He is tolerating antibiotics well. His creatinine is improving and is down to 1.5 today. As part of his workup, he did have an ultrasound done of the left lower extremity which showed high grade stenosis. He is being followed by both vascular and orthopedic surgery; however, it appears the patient is refusing any surgical procedures. He is currently n.p.o. He did have an x-ray of the left foot which did not show any evidence of osteomyelitis. Infectious disease was consulted for further antibiotic management. The patient states he has no pain in the foot. He states he does follow with the wound center or medical scientific liaison for management of his ulcerations and is only following with his general practitioner in [place]. He states that he was told by his family physician that the wounds do not require any additional treatment at this time. He denies any pain in the leg. He denies any fevers or chills prior to admission. He denies any chest pain, cough, shortness of breath, nausea, vomiting, diarrhea or abdominal pain. He has no urinary symptoms. His remaining review of systems is unremarkable. He is stating that he would like to be discharged to home today. PAST MEDICAL HISTORY: Significant for hypertension, BPH, hypothyroidism, lower extremity insufficiency, chronic kidney disease. PAST SURGICAL HISTORY: Unremarkable. SOCIAL HISTORY: Negative for tobacco use, alcohol use or drug use. ALLERGIES: HE STATES AN ALLERGY TO TRAMADOL. FAMILY HISTORY: Noncontributory. MEDICATIONS: Include vancomycin, subQ heparin, Flomax, methimazole, Coreg, Ditropan, MiraLax, Tylenol, Maalox, milk of magnesia, Zofran. PHYSICAL EXAMINATION: VITAL SIGNS: She is afebrile, pulse 81, respiratory rate 18, blood pressure 152/66. Oxygen saturation is 95-98% on room air. GENERAL: He is awake, alert and oriented x3. He is in no acute distress. HEAD, EYES, EARS, NOSE, AND THROAT: Mucous membranes are moist. Dentition is poor. Extraocular muscles are intact. HEART: Regular. LUNGS: Clear with no decreased breath sounds bilaterally. ABDOMEN: Soft, nontender, nondistended. There is no lower extremity edema. SKIN: Without rash. Examination of the feet with multiple ulcerations over the toes on the left foot in addition to necrotic ulceration. There is no purulent drainage. There is no bleeding. There is no warmth or erythema associated with this. LABORATORY STUDIES: CBC today reveals a white blood cell count of 7.1, hemoglobin 9.9 and platelets of 206. Chemistry panel reveals a sodium of 143, potassium 3.9, chloride 115, bicarb 18, BUN 37, creatinine 1.5, glucose is 118. Again, cultures from the left foot, the buttocks and the left toe are all growing community-acquired MRSA. Blood cultures from the 10th are no growth to date. Imaging is as above. ASSESSMENT AND PLAN: Infected ulcerations with community-acquired MRSA. At this time, he will remain on vancomycin as he is n.p.o. for potential surgical intervention. However, it does appear on my conversation with the patient he is refusing any intervention at this point. His family is present and I did explain that in order to treat effectively with antibiotics sufficient blood flow will be needed to the foot. Otherwise, this could compromise his healing as well as his vascular supply and ultimately lead to amputation. He will remain on vancomycin pending his decision to undergo surgery. If he decides to not have any surgical intervention my recommendation would be a 21-day course of doxycycline 100 mg twice daily with food, which can be administered on outpatient basis.
--- NOTE | 2017-06-16 10:39 | DIAGNOSTIC IMAGING REPORT ---
ULTRASOUND KIDNEYS AND BLADDER CLINICAL HISTORY: Acute renal insufficiency. COMPARISON STUDY: No priors. TECHNIQUE: Real-time, grayscale, and color flow sonography of the kidneys and bladder is performed. Images are reviewed in the transverse and longitudinal planes. FINDINGS: Kidneys: The kidneys demonstrate cortical atrophy. The right kidney measures 10.6 x 4.8 x 4.7 cm and the left kidney measures 11.1 x 6.3 x 6.3 cm. There is no hydronephrosis. No shadowing renal calculi are identified. A 1.4 cm cyst is noted on the right, and a cyst in the interpolar left kidney measures up to 3.3 cm. There is no sonographic evidence of contour deforming renal mass lesion. There is trace left-sided perinephric fluid. Bladder: The bladder is decompressed around a Diaz catheter and not assessed. IMPRESSION: 1. The kidneys demonstrate cortical atrophy and are without hydronephrosis. 2. There is trace nonspecific left-sided perinephric fluid. 3. The bladder is decompressed around a Diaz catheter and could not be evaluated. Electronically signed by: Aidan Fisher M.D. 06/16/2017 10:38 AM Dictated Date/Time: 06/16/2017 10:36 AM
--- NOTE | 2017-06-16 12:43 | Pharmacy Progress Note ---
Pharmacy Abx Dose Progress Nt Date of Service Jun 16, 2017. Pharmacy Dosing Scope The patient is currently receiving the following antimicrobial agents per Pharmacy consult: Vancomycin 1250 mg IV every 30 hours Objective Height (Feet): 5 Height (Inches): 6.00 Weight (Kilograms): 77.000 Vital Signs (Past 12Hrs) Vital Signs Past 12 Hours Date Time Temp Pulse Resp B/P (MAP) Pulse Ox O2 Delivery O2 Flow Rate FiO2 06/16/17 08:00 Room Air 06/16/17 07:41 37.0 81 18 152/66 (94) 96 Lab Results (24Hrs) Laboratory Tests (24 Hours) Test 06/16/17 05:46 Erythrocyte Sedimentation Rate 43 mm/hr (0-14) H White Blood Count 7.11 K/uL (4.8-10.8) Micro Results Date/Time Source Procedure Growth Status 06/14/17 11:06 Blood Blood Culture - Preliminary NO GROWTH TO DATE. Resulted 06/14/17 10:53 Blood Blood Culture - Preliminary NO GROWTH TO DATE. Resulted 06/15/17 09:23 Drainage - Surface Foot Left Gram Stain - Final Resulted 06/15/17 09:23 Wound Culture - Preliminary Staphylococcus Aureus Resulted 06/14/17 10:00 Skin Buttock Gram Stain - Final Complete 06/14/17 10:00 Wound Culture - Final Staphylococcus Aureus Complete 06/14/17 10:00 Drainage - Surface Toe Left 1 Gram Stain - Final Complete 06/14/17 10:00 Wound Culture - Final Staphylococcus Aureus Complete Assessment & Plan Assessment 86 year old male receiving Vancomycin IV for treatment of infected ulcers growing MRSA. * Day # 3 of antimicrobial therapy * h/o CKD, PVD, currently NPO for possible surgical intervention with Dr. Palafox Patient received a loading dose of 2000 mg on 06/14 @ 1130. Next dose was due for 06/15 @ 1800, however it is unclear if that dose was completely infused. RN called pharmacy on 06/16 am to alert us that Vanc dose from 06/15 was found to be still hanging with a significant amount of fluid remaining. A stat random level was ordered to assess further dosing. Random level was 18.2 mcg/mL. Plan Vancomycin IV * Renal function significantly improved since admission (Scr 2.17 -> 1.68 -> 1.59) * Change to 1000 mg IV every 24 hours * Goal trough level : ~20 mcg/mL * Trough level ordered for: 06/18/17 * Of note, MRSA vanc LUIS ARMANDO = 2. It will be difficult to reach appropriate drug levels at the site of infection, especially in the setting of PVD. Consider alternative agent if patient declines surgery. Recommend against Dapto d/t CPK elevations (CPK: 3457, 1902) ID consulted --> recommend to continue Vanc IV pending decision to have surgery. If pt declines surgery, change to doxycycline 100 mg BID x 21 days. Thank you.
[2017-06-16 15:24] VITALS: BP 125/64; PULSE 68; TEMP 36.4; O2SAT 98
--- NOTE | 2017-06-16 18:44 | Progress Note ---
Subjective Date of Service: Jun 16, 2017. Subjective Pt evaluation today including: conversation w/ patient, conversation w/ family , physical exam, chart review, lab review, review of studies, review of inpatient medication list pt notes he's feeling fine wonders why he's here. initially notes he doesn't want anyone to cut on him or take anything off his body. later, after a careful and stepwise explanation of vascular disease - and how with current state of blood flow it's highly unlikely things will heal - and that with necrotic tissue infection will be able to propagate and likely infect other surrounding tissue extending necrosis - he then expresses understanding of situation and willingness to conservatively proceed. still would like to only have truly necrotic tissue removed as it pertains to any degree of amputation, but more understanding of what is going on dtr notes that to the best of her knowledge he actually was doing well at home for a while - was seeing docs regularly - foot being observed - PCP felt that an area was to auto-amputate per her description - but taht it was being managed actively and frequently. ntoes that actually he'd also seen doc in regards to thyroid - labs looked good, meds stopped, f/u labs still looked good and he was off methimazole deliberately. she believes it's only been a recent decompensation, not an ongoing decline. admittedly she notes she lives in the [facility] and not locally Review of Systems all other ROS otherwise negative except for as above Objective Vital Signs Date Time Temp Pulse Resp B/P (MAP) Pulse Ox O2 Delivery O2 Flow Rate FiO2 06/16/17 16:00 Room Air 06/16/17 15:24 36.4 68 18 125/64 (84) 98 06/16/17 08:00 Room Air 06/16/17 07:41 37.0 81 18 152/66 (94) 96 06/16/17 00:00 98 Room Air 06/15/17 23:26 36.7 64 18 146/73 (97) 96 Room Air Physical Exam General Appearance: no apparent distress Eyes: EOMI ENT: hearing grossly normal Neck: trachea midline Respiratory/Chest: no respiratory distress, no accessory muscle use Neurologic/Psychiatric: audio visual production specialist II-XII nml as tested, alert, normal mood/affect Skin: normal color, warm/dry Laboratory Results Last 24 Hours Test 06/16/17 05:46 06/16/17 08:08 White Blood Count 7.11 K/uL Red Blood Count 3.31 M/uL Hemoglobin 9.9 g/dL Hematocrit 29.5 % Mean Corpuscular Volume 89.1 fL Mean Corpuscular Hemoglobin 29.9 pg Mean Corpuscular Hemoglobin Concent 33.6 g/dl RDW Standard Deviation 45.2 fL RDW Coefficient of Variation 13.8 % Platelet Count 206 K/uL Mean Platelet Volume 9.8 fL Erythrocyte Sedimentation Rate 43 mm/hr Sodium Level 143 mmol/L Potassium Level 3.9 mmol/L Chloride Level 115 mmol/L Carbon Dioxide Level 18 mmol/L Anion Gap 9.0 mmol/L Blood Urea Nitrogen 37 mg/dl Creatinine 1.59 mg/dl Est Creatinine Clear Calc Drug Dose 31.4 ml/min Estimated GFR () 44.3 Estimated GFR (Non- 38.2 BUN/Creatinine Ratio 23.3 Random Glucose 118 mg/dl Calcium Level 8.3 mg/dl Random Vancomycin Level 18.2 mcg/ml Assessment and Plan ARF, dehydration - Improved wtih fluids - uncertain baseline - probably does have a degree of CKD but improving - continue to follow, check renal US Left great toe arterial wound infection, foot ulcers, L buttocks deep tissue injury and R buttocks stage 3 pressure ulcer as well as L heel unstageable pressure ulcer and L medial 1st metatarsal deep tissue injury. - Wound care - consulted ortho - anticipate need for debridement - but as discussed with pt, as far as bone is concerned, he would only want truly unsalvagable tissue removed - vascular to attempt to revascularize in near future - Foot x ray did not show osteomyelitis - unable to get MRI - d/w ortho and CT is preferred as second line; and noted they would like this preop - will order -Culture of great toe grew staph - continue vanco PVD - multiple areas of arterial occlusion on LE arterial US, no palpable pedal pulses, - consulted vascular surgery - for procedure next week - coreg - would like to add statin, but with lipids being so low and advanced age, risks (ICH) outweigh benefits - add antiplatelets etc for terminal superintendent management once it won't interfere with needed procedures Rhabdomyolysis - Initial CK 2600, now 1900 - essentially resolved HTN - Cont Carvedilol Hyperthyroidism - TSH .005, T4 1.79 - resume methimazole - dtr notes this was actually deliberately stopped because labs looked good and then f/u labs after cessation looked good as well BPH - cont Flomax Anemia - no evidence of bleeding - suspected chronic - will trend Dispo: PT/OT ordered, CM.
[2017-06-16 22:30] VITALS: BP 130/70; PULSE 77; TEMP 36.5; O2SAT 98
[2017-06-17] MEDS: ACETAMINOPHEN 325 MG TAB PO PRN (01:49)
[2017-06-17] MEDS ORDERED: DiphenhydrAMINE INJ 25 MG in SYRINGE 0 ML IV STA (04:20)
[2017-06-17] MEDS ORDERED: DiphenhydrAMINE HCL 50 MG/ML VIAL IV STA (04:29)
[2017-06-17 06:47] LABS: HEMATOCRIT 28.6 % (42-52); HEMOGLOBIN 9.6 g/dL (14.0-18.0); MEAN CELL VOLUME 88.3 fL (80-100); MEAN CORPUSCULAR HEMOGLOBIN 29.6 pg (25-34); MEAN CORPUSCULAR HGB CONC 33.6 g/dl (32-36); MEAN PLATELET VOLUME 9.7 fL (7.4-10.4); PLATELET COUNT 202 K/uL (130-400); RED CELL DISTRIBUTION WIDTH CV 13.7 % (11.5-14.5); RED CELL DISTRIBUTION WIDTH SD 44.5 fL (36.4-46.3); WHITE BLOOD COUNT 6.65 K/uL (4.8-10.8)
[2017-06-17 07:18] LABS: CREATININE 1.36 mg/dl (0.60-1.40); POTASSIUM 3.6 mmol/L (3.5-5.1)
[2017-06-17 08:04] VITALS: BP 148/66; PULSE 86; TEMP 36.5; O2SAT 97
[2017-06-17] MEDS: OXYBUTYNIN CHLORIDE 5 MG TAB PO SCH ×2 (09:09→20:47)
[2017-06-17] MEDS: CARVEDILOL 25 MG TAB PO SCH ×2 (09:09→20:45)
[2017-06-17] MEDS: METHIMAZOLE 5 MG TAB PO SCH (09:09)
[2017-06-17] MEDS: TAMSULOSIN HCL 0.4 MG CAP PO SCH (09:09)
[2017-06-17] MEDS: HEPARIN SOD 5000 UNIT/0.5 ML CARP SQ SCH ×2 (09:13→20:41)
[2017-06-17] MEDS ORDERED: VANCOMYCIN TROUGH ONE (09:30)
[2017-06-17] MEDS: VANCOMYCIN INJ 1,000 MG in SODIUM CHLORIDE 0.9% 250ML 250 ML IV SCH (10:39)
--- NOTE | 2017-06-17 10:45 | DIAGNOSTIC IMAGING REPORT ---
L LOWER EXTREMITY WITHOUT CT DOSE: 639.60 mGy.cm HISTORY: Osteomyelitis. foot - eval heel and toe for ?osteo, ?abscess TECHNIQUE: Multiaxial CT images of the were performed and reformatted in the sagittal and coronal plane without the use of contrast. A dose lowering technique was utilized adhering to the principles of ALARA. COMPARISON: None. FINDINGS: Severe degenerative change throughout all major osseous structures. Diffuse heterogeneity of bone marrow mineralization with associated osteoporosis. Soft tissue vascular calcifications. Moderate soft tissue edematous change. No evidence for true bony destructive process. No evidence for drainable abscess or collection. Soft tissue findings suggesting a generalized nonspecific soft tissue cellulitis. IMPRESSION: 1. Severe degenerative change 2. Generalized soft tissue edema and/or cellulitis. 3. Osteoporosis 4. No evidence for drainable abscess or collection. 5. No definite lytic or blastic destructive process of the bony structures 6. No well-defined evidence for osteomyelitis on this exam The above report was generated using voice recognition software. It may contain grammatical, syntax or spelling errors. Electronically signed by: Gilbert Nails M.D. 06/17/2017 10:44 AM Dictated Date/Time: 06/17/2017 10:40 AM
[2017-06-17] MEDS: SODIUM CHLORIDE 0.9% 1000ML 1,000 ML IV SCH ×2 (12:26→23:28)
[2017-06-17 15:10] VITALS: BP 148/66; PULSE 58; TEMP 36.6; O2SAT 98
[2017-06-17 17:16] VITALS: O2SAT 98
--- NOTE | 2017-06-17 17:31 | Progress Note ---
Subjective Date of Service: Jun 17, 2017. Subjective Pt evaluation today including: conversation w/ patient, conversation w/ family (tried to call dtr - no answer - LM ) biggest complaint was poor sleep tired today because of it, but was trying not to nap no other significant complaints - CT reviewed he expresses relief that CT does not show evidence of osteomyelitis/etc Review of Systems all other ROS otherwise negative except for as above Objective Vital Signs Date Time Temp Pulse Resp B/P (MAP) Pulse Ox O2 Delivery O2 Flow Rate FiO2 06/17/17 17:16 98 Room Air 06/17/17 15:10 36.6 58 18 148/66 (93) 98 Room Air 06/17/17 08:04 36.5 86 18 148/66 (93) 97 Room Air 06/17/17 08:00 Room Air 06/17/17 00:00 Room Air 06/16/17 22:30 36.5 77 18 130/70 (90) 98 Room Air Physical Exam General Appearance: no apparent distress Eyes: EOMI ENT: hearing grossly normal (CHILKAT but able to hear well w loud voice) Neck: trachea midline Respiratory/Chest: no respiratory distress, no accessory muscle use Extremities: normal range of motion Neurologic/Psychiatric: reserve officer II-XII nml as tested, alert, normal mood/affect Skin: normal color, warm/dry Laboratory Results Last 24 Hours Test 06/17/17 06:21 White Blood Count 6.65 K/uL Red Blood Count 3.24 M/uL Hemoglobin 9.6 g/dL Hematocrit 28.6 % Mean Corpuscular Volume 88.3 fL Mean Corpuscular Hemoglobin 29.6 pg Mean Corpuscular Hemoglobin Concent 33.6 g/dl RDW Standard Deviation 44.5 fL RDW Coefficient of Variation 13.7 % Platelet Count 202 K/uL Mean Platelet Volume 9.7 fL Sodium Level 140 mmol/L Potassium Level 3.6 mmol/L Chloride Level 113 mmol/L Carbon Dioxide Level 17 mmol/L Anion Gap 10.0 mmol/L Blood Urea Nitrogen 31 mg/dl Creatinine 1.36 mg/dl Est Creatinine Clear Calc Drug Dose 36.7 ml/min Estimated GFR () 53.5 Estimated GFR (Non- 46.1 BUN/Creatinine Ratio 22.6 Random Glucose 128 mg/dl Calcium Level 8.0 mg/dl Assessment and Plan ARF, dehydration - Improved with fluids - uncertain baseline - probably does have a degree of CKD but improving - continue to follow, renal US does show findings c/w CKD but creatinine continues to improve Left great toe arterial wound infection, foot ulcers, L buttocks deep tissue injury and R buttocks stage 3 pressure ulcer as well as L heel unstageable pressure ulcer and L medial 1st metatarsal deep tissue injury. - Wound care - consulted ortho - anticipate need for debridement - but fortunately CT does not suggest that osteomyelitis is at play - vascular to attempt to revascularize in near future -Culture of great toe grew MRSA - continue vanco PVD - multiple areas of arterial occlusion on LE arterial US, no palpable pedal pulses, - consulted vascular surgery - for procedure to attempt to revascularize - coreg - would like to add statin, but with lipids being so low and advanced age, risks (ICH) outweigh benefits - add antiplatelets etc for longterm management once it won't interfere with needed procedures, hold for now Rhabdomyolysis - Initial CK 2600, now 1900 - essentially resolved HTN - Cont Carvedilol Hyperthyroidism - TSH .005, T4 1.79 - resume methimazole - dtr notes this was actually deliberately stopped because labs looked good and then f/u labs after cessation looked good as well, clinically doing well. f/u TSH and free T4 in near future BPH - cont Flomax Anemia - no evidence of bleeding - suspected chronic - will trend Dispo: PT/OT ordered, likely to need rehab after dsicharge but appears terminal manager plan of home may be more viable than initially thought given his progress attempted to update dtr
[2017-06-17 20:46] VITALS: BP 166/66; PULSE 83
[2017-06-18] MEDS ORDERED: VANCOMYCIN TROUGH ONE ×2 (05:30→09:30)
[2017-06-18 08:04] VITALS: BP 156/63; PULSE 84; TEMP 36.7; O2SAT 98
[2017-06-18] MEDS: TAMSULOSIN HCL 0.4 MG CAP PO SCH (09:26)
[2017-06-18] MEDS: METHIMAZOLE 5 MG TAB PO SCH (09:26)
[2017-06-18] MEDS: CARVEDILOL 25 MG TAB PO SCH ×2 (09:26→19:26)
[2017-06-18] MEDS: OXYBUTYNIN CHLORIDE 5 MG TAB PO SCH ×2 (09:26→19:25)
[2017-06-18] MEDS: HEPARIN SOD 5000 UNIT/0.5 ML CARP SQ SCH ×2 (09:27→19:28)
[2017-06-18] MEDS: VANCOMYCIN INJ 1,000 MG in SODIUM CHLORIDE 0.9% 250ML 250 ML IV SCH (10:01)
[2017-06-18 10:14] LABS: HEMATOCRIT 28.1 % (42-52); HEMOGLOBIN 9.6 g/dL (14.0-18.0); MEAN CELL VOLUME 88.4 fL (80-100); MEAN CORPUSCULAR HEMOGLOBIN 30.2 pg (25-34); MEAN CORPUSCULAR HGB CONC 34.2 g/dl (32-36); MEAN PLATELET VOLUME 9.5 fL (7.4-10.4); PLATELET COUNT 218 K/uL (130-400); RED CELL DISTRIBUTION WIDTH CV 13.8 % (11.5-14.5); RED CELL DISTRIBUTION WIDTH SD 44.8 fL (36.4-46.3); WHITE BLOOD COUNT 7.63 K/uL (4.8-10.8)
[2017-06-18 10:58] LABS: CALCIUM 8.2 mg/dl (8.5-10.1); CREATININE 1.34 mg/dl (0.60-1.40); POTASSIUM 3.8 mmol/L (3.5-5.1)
--- NOTE | 2017-06-18 11:28 | Pharmacy Progress Note ---
Pharmacy Abx Dose Short Note Date of Service Jun 18, 2017. Assessment & Plan Mr. Ramirez's trough came back therapeutic. Renal fxn stable previous 48hrs. Minimal risk for vancomycin accumulation given his habitus. Will continue current vancomycin regimen. No further lvls ordered given his steady renal fxn. May need to order future lvls if renal fxn trends in a different direction. Pharmacy will continue to follow and will adjust dose/frequency as necessary. Thank you.
[2017-06-18] MEDS: SODIUM CHLORIDE 0.9% 1000ML 1,000 ML IV SCH (13:14)
[2017-06-18 15:04] VITALS: BP 175/70; PULSE 77; TEMP 36.8; O2SAT 99
--- NOTE | 2017-06-18 19:09 | Progress Note ---
Subjective Date of Service: Jun 18, 2017. Subjective Pt evaluation today including: conversation w/ patient, physical exam, chart review, lab review feeling tired didnt' sleep well again now more combative and wants to go home. tried to explain discussions of last few days but today doesn't want to hear it, doesn't want to think about blocked blood vessels in legs and doesn't believe he'd be at risk for losing foot d/w dtr erum at length and updated answered all questions Review of Systems all other ROS otherwise negative except for as above Objective Vital Signs Date Time Temp Pulse Resp B/P (MAP) Pulse Ox O2 Delivery O2 Flow Rate FiO2 06/18/17 15:45 Room Air 06/18/17 15:04 36.8 77 18 175/70 (105) 99 Room Air 06/18/17 08:04 36.7 84 18 156/63 (94) 98 Room Air 06/18/17 08:00 Room Air 06/17/17 23:30 Room Air 06/17/17 20:46 83 166/66 (99) Physical Exam General Appearance: no apparent distress Eyes: EOMI ENT: hearing grossly normal Neck: trachea midline Respiratory/Chest: no respiratory distress, no accessory muscle use Neurologic/Psychiatric: rv mechanic II-XII nml as tested, alert Skin: normal color, warm/dry Laboratory Results Last 24 Hours Test 06/18/17 09:50 White Blood Count 7.63 K/uL Red Blood Count 3.18 M/uL Hemoglobin 9.6 g/dL Hematocrit 28.1 % Mean Corpuscular Volume 88.4 fL Mean Corpuscular Hemoglobin 30.2 pg Mean Corpuscular Hemoglobin Concent 34.2 g/dl RDW Standard Deviation 44.8 fL RDW Coefficient of Variation 13.8 % Platelet Count 218 K/uL Mean Platelet Volume 9.5 fL Sodium Level 141 mmol/L Potassium Level 3.8 mmol/L Chloride Level 114 mmol/L Carbon Dioxide Level 18 mmol/L Anion Gap 9.0 mmol/L Blood Urea Nitrogen 23 mg/dl Creatinine 1.34 mg/dl Est Creatinine Clear Calc Drug Dose 37.2 ml/min Estimated GFR () 54.4 Estimated GFR (Non- 47.0 BUN/Creatinine Ratio 17.0 Random Glucose 171 mg/dl Calcium Level 8.2 mg/dl Vancomycin Level Trough 18.8 mcg/ml Assessment and Plan ARF, dehydration - Improved with fluids - uncertain baseline - probably does have a degree of CKD but improving - continue to follow, renal US does show findings c/w CKD - seems maybe baseline is going to be around 1.3x range Left great toe arterial wound infection, foot ulcers, L buttocks deep tissue injury and R buttocks stage 3 pressure ulcer as well as L heel unstageable pressure ulcer and L medial 1st metatarsal deep tissue injury. - Wound care - consulted ortho - anticipate need for debridement - but fortunately CT does not suggest that osteomyelitis is at play - vascular to attempt to revascularize in near future -Culture of great toe grew MRSA - continue vanco -stable PVD - multiple areas of arterial occlusion on LE arterial US, no palpable pedal pulses, - consulted vascular surgery - for procedure to attempt to revascularize - coreg - would like to add statin, but with lipids being so low and advanced age, risks (ICH) outweigh benefits - add antiplatelets etc for long term care social worker management once it won't interfere with needed procedures, hold for now and start once able Rhabdomyolysis - Initial CK 2600, now 1900 - essentially resolved HTN - Cont Carvedilol BP reasonable Hyperthyroidism - TSH .005, T4 1.79 - resumed methimazole - dtr noted this was actually deliberately stopped because labs looked good and then f/u labs after cessation looked good as well, clinically doing well. f/u TSH and free T4 in near future BPH - cont Flomax Anemia - no evidence of bleeding - suspected chronic - has been overall stable hypocalcemia - vitamin D as outpt Dispo: PT/OT ordered, likely to need rehab after discharge but appears long term care social worker plan of home may be more viable than initially thought given his progress updated dtr Erum (phone [phone]) - she expressed appreciation and noted that if he's refractory to treatments she can come back to talk to him more
[2017-06-19] MEDS: SODIUM CHLORIDE 0.9% 1000ML 1,000 ML IV SCH ×2 (04:00→14:26)
[2017-06-19 07:59] LABS: HEMATOCRIT 27.6 % (42-52); HEMOGLOBIN 9.6 g/dL (14.0-18.0); MEAN CELL VOLUME 87.6 fL (80-100); MEAN CORPUSCULAR HEMOGLOBIN 30.5 pg (25-34); MEAN CORPUSCULAR HGB CONC 34.8 g/dl (32-36); MEAN PLATELET VOLUME 9.3 fL (7.4-10.4); PLATELET COUNT 234 K/uL (130-400); RED CELL DISTRIBUTION WIDTH CV 13.8 % (11.5-14.5); RED CELL DISTRIBUTION WIDTH SD 44.6 fL (36.4-46.3); WHITE BLOOD COUNT 7.78 K/uL (4.8-10.8)
[2017-06-19 08:30] LABS: CALCIUM 8.1 mg/dl (8.5-10.1); CREATININE 1.09 mg/dl (0.60-1.40); POTASSIUM 3.7 mmol/L (3.5-5.1)
[2017-06-19] MEDS: OXYBUTYNIN CHLORIDE 5 MG TAB PO SCH ×2 (08:36→20:31)
[2017-06-19] MEDS: METHIMAZOLE 5 MG TAB PO SCH (08:37)
[2017-06-19] MEDS: CARVEDILOL 25 MG TAB PO SCH ×2 (08:37→20:32)
[2017-06-19] MEDS: TAMSULOSIN HCL 0.4 MG CAP PO SCH (08:37)
[2017-06-19] MEDS: HEPARIN SOD 5000 UNIT/0.5 ML CARP SQ SCH ×2 (08:53→20:35)
[2017-06-19 08:58] VITALS: BP 157/66; PULSE 94; TEMP 36.5; O2SAT 97
--- NOTE | 2017-06-19 09:07 | Progress Note ---
Progress Note Date of Service Jun 19, 2017. Progress Note Patient agreeable to arteriography and possible intervention of the left lower extremity. I have discussed the risks options and benefits of the procedure with the patient. The patient understands the risks options and benefits and agrees to the procedure. This will be scheduled for tomorrow afternoon.
[2017-06-19] MEDS: VANCOMYCIN INJ 1,000 MG in SODIUM CHLORIDE 0.9% 250ML 250 ML IV SCH (10:52)
--- NOTE | 2017-06-19 10:56 | Progress Note ---
Subjective Date of Service: Jun 19, 2017. Subjective afebrile, remains on IV vanco, scheduled for vascular intervention tomorrow. blood cultures remain negative, afebrile. Objective Vital Signs Date Time Temp Pulse Resp B/P (MAP) Pulse Ox O2 Delivery O2 Flow Rate FiO2 06/19/17 08:58 36.5 94 18 157/66 (96) 97 Room Air 06/19/17 08:20 Room Air 06/19/17 00:00 Room Air 06/18/17 20:00 Room Air 06/18/17 15:45 Room Air 06/18/17 15:04 36.8 77 18 175/70 (105) 99 Room Air Laboratory Results Item Value Date Time Gram Stain - Final Complete 06/15/17 0923 Drainage - Surface Foot Left Blood Culture - Preliminary Resulted 06/14/17 1106 Blood NO GROWTH TO DATE. Blood Culture - Preliminary Resulted 06/14/17 1053 Blood NO GROWTH TO DATE. Last 24 Hours Test 06/19/17 07:29 White Blood Count 7.78 K/uL Red Blood Count 3.15 M/uL Hemoglobin 9.6 g/dL Hematocrit 27.6 % Mean Corpuscular Volume 87.6 fL Mean Corpuscular Hemoglobin 30.5 pg Mean Corpuscular Hemoglobin Concent 34.8 g/dl RDW Standard Deviation 44.6 fL RDW Coefficient of Variation 13.8 % Platelet Count 234 K/uL Mean Platelet Volume 9.3 fL Sodium Level 141 mmol/L Potassium Level 3.7 mmol/L Chloride Level 113 mmol/L Carbon Dioxide Level 16 mmol/L Anion Gap 12.0 mmol/L Blood Urea Nitrogen 19 mg/dl Creatinine 1.09 mg/dl Est Creatinine Clear Calc Drug Dose 45.8 ml/min Estimated GFR () 69.9 Estimated GFR (Non- 60.3 BUN/Creatinine Ratio 17.1 Random Glucose 121 mg/dl Calcium Level 8.1 mg/dl Assessment and Plan (1) Foot ulcer Assessment & Plan: continue vanco for now, await OR findings, plan to d/c on po abx but will follow surgical findings.
--- NOTE | 2017-06-19 14:28 | Anesthesiology Progress Note ---
Pre-OP Anesthesia Assessment Date of Note Jun 19, 2017. Review patient information reviewed, chart reviewed, labs reviewed, acceptable for surgery Notes The patient is a very pleasant gentleman who was alert and appropriate when I saw him. He was not in any distress. When it came time to sign the anesthesia consent form, he was very reluctant to sign it, saying that he was 86 years old and he did not want to have the procedure. He thinks he is being talked into having a procedure that he does not want. I told him we would defer signing the consent form until tomorrow if he has a procedure. As far as I am concerned, there is no reason why he could not have an anesthetic. Other than his distal lower extremity peripheral vascular disease he no known heart or lung disease. He has a history of hyperthyroidism well controlled by methimazole, CKD and hypertension.
[2017-06-19 14:44] VITALS: BP 175/70; PULSE 77; TEMP 36.8; O2SAT 98
[2017-06-19 16:00] VITALS: O2SAT 98
--- NOTE | 2017-06-19 16:05 | ORTHOPEDIC PROGRESS NOTE ---
DATE: 06/19/2017 SUBJECTIVE: The patient is an 86-year-old white male. [facility] had been initially consulted for a question of osteomyelitis of the great toe and also with a necrotic heel ulcer. After much discussion with medicine service and also with Dr. Palafox, plans were to hold on any current surgery. A CT scan was done showing no osteomyelitis and Dr. Palafox has seen the patient today and has got his consent for angiography and possible intervention if needed for the affected extremity. OBJECTIVE: The patient is currently lying in bed and appears comfortable. He has no complaints. On examination of his left lower extremity, he has noted that the dressing he currently has on is a tangled mess and not fully wrapping his foot. This was removed and when I saw him last week, his great toe actually appears to have improved somewhat; however, his necrotic area over the heel appears to be about the same. The foot is mildly warm and refill is sluggish. Aquacel was then placed on the 2 areas of the great toe and 4 x 4 dressings were placed over this as well as over the heel and a Kerlix dressing was then wrapped around this. ASSESSMENT: Necrotic heel ulcer with question of draining areas over the right great toe that has shown no osteomyelitis. PLAN: Dr. Palafox is planning on as noted above, an angiography and possible intervention if needed. I will be discussing the case with Dr. Varghese and get his opinion to see if this is a patient that we will need to take to the operating room for debridement either on the great toe and/or the heel. In the meantime, we will continue daily dressing changes and continue to follow. JASON
--- NOTE | 2017-06-19 16:41 | Hospitalist Progress Note ---
Hospitalist Progress Note Date of Service Jun 19, 2017. Subjective Pt evaluation today including: conversation w/ patient, physical exam, chart review, lab review, review of inpatient medication list Voiding: bennett catheter in place Mr. Ramirez has no complaints. He is adamant that he will not go to inpatient rehab after hospitalization and is going home. He is currently requiring assist of two to get around his room and cannot bear weight on his left leg due to his wounds. He is to have an angiography tomorrow with Dr. Vivienne SON Constitutional: no chills, aches, sweats or fever Respiratory: no sob,cough, sputum, or wheezing Cardiac: no chest pain, palpitations, edema, orthopnea or lightheadedness GI: no abdominal pain, nausea, vomiting, diarrhea or constipation : no dysuria or hesitancy Extremities: no joint pain or weakness Skin: no rash All other systems reviewed and negative Medications Medications Administered Medications (Trade) Dose Ordered Sig/Carina Route Start Time Stop Time Status Last Admin Dose Admin Acetaminophen (Tylenol Tab) 650 mg Q4H PRN PO 06/13/17 11:45 07/13/17 11:44 06/17/17 01:49 650 MG Sodium Chloride 1,000 ml @ 80 mls/hr [id number] IV 06/13/17 14:15 06/14/17 15:14 DC 06/14/17 03:05 80 MLS/HR Carvedilol (Coreg Tab) 25 mg BID PO 06/13/17 21:00 07/13/17 20:59 06/19/17 08:37 25 MG Oxybutynin Chloride (Ditropan Tab) 10 mg BID PO 06/13/17 21:00 07/13/17 20:59 06/19/17 08:36 10 MG Tamsulosin HCl (Flomax Cap) 0.4 mg DAILY PO 06/14/17 09:00 07/14/17 08:59 06/19/17 08:37 0.4 MG Methimazole (Methimazole Tab) 5 mg DAILY PO 06/14/17 09:00 07/14/17 08:59 06/19/17 08:37 5 MG Ceftriaxone Sodium 2000 mg/ Dextrose 70 ml @ 100 mls/hr Q24H IV 06/14/17 11:00 06/16/17 08:27 DC 06/15/17 11:09 100 MLS/HR Vancomycin HCl 2000 mg/Sodium Chloride 540 ml @ 200 mls/hr NOW STAT IV 06/14/17 10:43 06/14/17 13:24 DC 06/14/17 12:21 200 MLS/HR Heparin Sodium (Porcine) (Heparin Sq 5000 Unit/0.5ml) 5,000 unit Q12 SQ 06/14/17 21:00 07/14/17 20:59 06/19/17 08:53 5,000 UNIT Vancomycin HCl 1250 mg/Sodium Chloride 275 ml @ 125 mls/hr Q30H IV 06/15/17 18:00 06/16/17 09:40 DC 06/15/17 18:35 125 MLS/HR Sodium Chloride 1,000 ml @ 80 mls/hr [id number] IV 06/15/17 10:00 07/15/17 09:59 06/19/17 14:26 80 MLS/HR Vancomycin HCl 1000 mg/Sodium Chloride 270 ml @ 125 mls/hr Q24H IV 06/16/17 10:00 07/26/17 09:59 06/19/17 10:52 125 MLS/HR Objective Vital Signs Date Time Temp Pulse Resp B/P (MAP) Pulse Ox O2 Delivery O2 Flow Rate FiO2 06/19/17 14:44 36.8 77 20 175/70 (105) 98 06/19/17 08:58 36.5 94 18 157/66 (96) 97 Room Air 06/19/17 08:20 Room Air 06/19/17 00:00 Room Air 06/18/17 20:00 Room Air Physical Exam Notes: General: no distress Eyes: normal inspection, PERLL Respiratory: chest non tender, clear to auscultation, normal breath sounds, no respiratory distress, no accessory muscle use Cardiac: regular rate and rhythm, no rub or gallop, no murmur, no edema, no jvd GI/: active bowel sounds, no abd pain or tenderness, soft, non distended Extremities: normal range of motion, normal strength, non tender Neuro/Psych: alert and oriented x 3, normal mood and affect Skin: normal color, dry, dressings intact Laboratory Results Last 24 Hours Test 06/19/17 07:29 White Blood Count 7.78 K/uL Red Blood Count 3.15 M/uL Hemoglobin 9.6 g/dL Hematocrit 27.6 % Mean Corpuscular Volume 87.6 fL Mean Corpuscular Hemoglobin 30.5 pg Mean Corpuscular Hemoglobin Concent 34.8 g/dl RDW Standard Deviation 44.6 fL RDW Coefficient of Variation 13.8 % Platelet Count 234 K/uL Mean Platelet Volume 9.3 fL Sodium Level 141 mmol/L Potassium Level 3.7 mmol/L Chloride Level 113 mmol/L Carbon Dioxide Level 16 mmol/L Anion Gap 12.0 mmol/L Blood Urea Nitrogen 19 mg/dl Creatinine 1.09 mg/dl Est Creatinine Clear Calc Drug Dose 45.8 ml/min Estimated GFR () 69.9 Estimated GFR (Non- 60.3 BUN/Creatinine Ratio 17.1 Random Glucose 121 mg/dl Calcium Level 8.1 mg/dl Assessment and Plan Mr. Ramirez is an 86 year old man here for confusion, weakness, dehydration, left toe infection, ARF, and rhabdomyolysis ARF, dehydration - Initial creat was 3.6, continues to trend down - we do not have a baseline at present and suspect underlying CKD, likely around 1.3 given renal US - continue gentle IVF - repeat prp in am Left great toe arterial wound infection, foot ulcers, L buttocks deep tissue injury and R buttocks stage 3 pressure ulcer as well as L heel unstageable pressure ulcer and L medial 1st metatarsal deep tissue injury. - Wound care - consulted ortho - no intervention at this time - Foot x ray did not show osteomyelitis -Culture of great toe grew MRSA - continue vanco per ID recommendation PVD - multiple areas of arterial occlusion on LE arterial US, no palpable pedal pulses, - consulted vascular surgery - arteriogram with possible intervention tomorrow Rhabdomyolysis - Initial CK 2600 and trended down - essentially resolved HTN - Cont Carvedilol Hyperthyroidism - TSH .005, T4 1.79 - resumed methimazole - dtr noted this was actually deliberately stopped because labs looked good and then f/u labs after cessation looked good as well, clinically doing well. f/u TSH and free T4 in near future BPH - cont Flomax Anemia - no evidence of bleeding - suspected chronic - will trend Dispo: PT/OT ordered, CM. Given patient's situation he was found in, seems likely that he will need placement on discharge. Full code
[2017-06-19] MEDS: ACETYLCYSTEINE 600 MG CAP PO SCH (17:53)
[2017-06-19] MEDS: ACETAMINOPHEN 325 MG TAB PO PRN (20:30)
[2017-06-19 23:30] VITALS: BP 166/76; PULSE 74; TEMP 36.9; O2SAT 96
[2017-06-20] VITALS (10 sets, daily range): BP systolic 151–187; BP diastolic 61–83; PULSE 66–82; TEMP 36.6–36.8; O2SAT 97–98
[2017-06-20] MEDS: SODIUM CHLORIDE 0.9% 1000ML 1,000 ML IV SCH (02:16)
[2017-06-20] MEDS: ACETYLCYSTEINE 600 MG CAP PO SCH ×3 (05:57→18:41)
[2017-06-20] MEDS: METHIMAZOLE 5 MG TAB PO SCH (08:01)
[2017-06-20] MEDS: OXYBUTYNIN CHLORIDE 5 MG TAB PO SCH ×2 (08:01→20:17)
[2017-06-20] MEDS: HEPARIN SOD 5000 UNIT/0.5 ML CARP SQ SCH ×2 (08:01→21:00)
[2017-06-20] MEDS: CARVEDILOL 25 MG TAB PO SCH ×2 (08:01→20:17)
[2017-06-20] MEDS: TAMSULOSIN HCL 0.4 MG CAP PO SCH (08:01)
[2017-06-20] MEDS ORDERED: VANCOMYCIN TROUGH ONE (09:30)
[2017-06-20] MEDS: VANCOMYCIN INJ 1,000 MG in SODIUM CHLORIDE 0.9% 250ML 250 ML IV SCH (10:16)
[2017-06-20] MEDS ORDERED: SODIUM BICARBONATE 8.4% INJ 100 MEQ in SODIUM CHLORIDE 0.45% 1000ML 1,000 ML IV SCH (11:00)
[2017-06-20] MEDS ORDERED: SODIUM CHLORIDE 0.9% 1000ML 1,000 ML IV SCH (11:00)
--- NOTE | 2017-06-20 12:16 | Pharmacy Progress Note ---
Pharmacy Abx Dose Short Note Date of Service Jun 20, 2017. Assessment & Plan Assessment 86 year old male receiving vancomycin for treatment of MRSA infected ulcers Day # 7 of antimicrobial therapy. Plan Vancomycin * Trough level of 18.1 mcg/mL is therapeutic- previous dose given ~1 hour late estimate "true" trough ~17.3 * Continue dose of 1000 mg IV every 24 hours * Goal trough level 15-20 mcg/mL * Will order trough if significant changes in renal function otherwise stable Pharmacy will continue to follow and will adjust dose/frequency as necessary. Thank you.
[2017-06-20 12:21] LABS: CREATININE 1.13 mg/dl (0.60-1.40)
--- NOTE | 2017-06-20 12:45 | Hospitalist Progress Note ---
Hospitalist Progress Note Date of Service Jun 20, 2017. Subjective Pt evaluation today including: conversation w/ patient, physical exam, chart review, review of inpatient medication list Voiding: no voiding problems Mr. Ramirez has no complaints, he got a good night of sleep and feels better rested. He is for an angiogram with vascular surgery today. ROS Constitutional: no chills, aches, sweats or fever Respiratory: no sob,cough, sputum, or wheezing Cardiac: no chest pain, palpitations, edema, orthopnea or lightheadedness GI: no abdominal pain, nausea, vomiting, diarrhea or constipation : no dysuria or hesitancy Extremities: no joint pain or weakness Skin: no rash All other systems reviewed and negative Medications Medications Administered Medications (Trade) Dose Ordered Sig/Carina Route Start Time Stop Time Status Last Admin Dose Admin Acetaminophen (Tylenol Tab) 650 mg Q4H PRN PO 06/13/17 11:45 07/13/17 11:44 06/19/17 20:30 650 MG Sodium Chloride 1,000 ml @ 80 mls/hr [id number] IV 06/13/17 14:15 06/14/17 15:14 DC 06/14/17 03:05 80 MLS/HR Carvedilol (Coreg Tab) 25 mg BID PO 06/13/17 21:00 07/13/17 20:59 06/20/17 08:01 25 MG Oxybutynin Chloride (Ditropan Tab) 10 mg BID PO 06/13/17 21:00 07/13/17 20:59 06/20/17 08:01 10 MG Tamsulosin HCl (Flomax Cap) 0.4 mg DAILY PO 06/14/17 09:00 07/14/17 08:59 06/20/17 08:01 0.4 MG Methimazole (Methimazole Tab) 5 mg DAILY PO 06/14/17 09:00 07/14/17 08:59 06/20/17 08:01 5 MG Ceftriaxone Sodium 2000 mg/ Dextrose 70 ml @ 100 mls/hr Q24H IV 06/14/17 11:00 06/16/17 08:27 DC 06/15/17 11:09 100 MLS/HR Vancomycin HCl 2000 mg/Sodium Chloride 540 ml @ 200 mls/hr NOW STAT IV 1/10/18 10:43 06/14/17 13:24 DC 06/14/17 12:21 200 MLS/HR Heparin Sodium (Porcine) (Heparin Sq 5000 Unit/0.5ml) 5,000 unit Q12 SQ 06/14/17 21:00 07/14/17 20:59 06/19/17 20:35 5,000 UNIT Vancomycin HCl 1250 mg/Sodium Chloride 275 ml @ 125 mls/hr Q30H IV 06/15/17 18:00 06/16/17 09:40 DC 06/15/17 18:35 125 MLS/HR Sodium Chloride 1,000 ml @ 80 mls/hr [id number] IV 06/15/17 10:00 06/20/17 06:28 DC 06/20/17 02:16 80 MLS/HR Vancomycin HCl 1000 mg/Sodium Chloride 270 ml @ 125 mls/hr Q24H IV 06/16/17 10:00 07/26/17 09:59 06/20/17 10:16 125 MLS/HR Acetylcysteine (Acetylcysteine Cap) 600 mg Q12H PO 06/19/17 18:00 06/21/17 06:01 06/20/17 05:57 600 MG Sodium Chloride 1,000 ml @ 77 mls/hr Q13H IV 06/20/17 11:00 07/20/17 10:59 06/20/17 11:12 77 MLS/HR Sodium Bicarbonate 100 meq/Sodium Chloride 1,100 ml @ 80 mls/hr [id number] IV 06/20/17 11:00 07/20/17 10:59 06/20/17 11:09 80 MLS/HR Objective Vital Signs Date Time Temp Pulse Resp B/P (MAP) Pulse Ox O2 Delivery O2 Flow Rate FiO2 06/20/17 10:40 Oxymask 06/20/17 08:00 Room Air 06/20/17 07:48 36.6 78 20 187/64 (105) 98 Room Air 06/19/17 23:30 36.9 74 16 166/76 (106) 96 Room Air 06/19/17 23:15 Room Air 06/19/17 16:00 98 Room Air 06/19/17 14:44 36.8 77 20 175/70 (105) 98 Physical Exam Notes: General: no distress Eyes: normal inspection, PERLL Respiratory: chest non tender, clear to auscultation, normal breath sounds, no respiratory distress, no accessory muscle use Cardiac: regular rate and rhythm, no rub or gallop, no murmur, no edema, no jvd GI/: active bowel sounds, no abd pain or tenderness, soft, non distended Extremities: normal range of motion, normal strength, non tender Neuro/Psych: alert and oriented x 3, normal mood and affect Skin: normal color, dry, dressing intact Laboratory Results Last 24 Hours Test 06/20/17 10:03 Creatinine 1.13 mg/dl Est Creatinine Clear Calc Drug Dose 44.1 ml/min Estimated GFR () 66.9 Estimated GFR (Non- 57.7 Vancomycin Level Trough 18.1 mcg/ml Assessment and Plan Mr. Ramirez is an 86 year old man here for confusion, weakness, dehydration, left toe infection, ARF, and rhabdomyolysis ARF, dehydration - Initial creat was 3.6, continues to trend down - 1.13 today - continue gentle IVF - repeat prp in am Left great toe arterial wound infection, foot ulcers, L buttocks deep tissue injury and R buttocks stage 3 pressure ulcer as well as L heel unstageable pressure ulcer and L medial 1st metatarsal deep tissue injury. - Wound care - consulted ortho - no intervention at this time - Foot x ray did not show osteomyelitis -Culture of great toe grew MRSA - continue vanco per ID recommendation, abx started 06/14 PVD - multiple areas of arterial occlusion on LE arterial US, no palpable pedal pulses, - consulted vascular surgery - arteriogram with possible intervention today Rhabdomyolysis - Initial CK 2600 and trended down - essentially resolved HTN - Cont Carvedilol Hyperthyroidism - TSH .005, T4 1.79 - resumed methimazole - dtr noted this was actually deliberately stopped because labs looked good and then f/u labs after cessation looked good as well, clinically doing well. f/u TSH and free T4 in near future BPH - cont Flomax Anemia - no evidence of bleeding - suspected chronic - will trend Dispo: PT/OT ordered, CM. Given patient's situation he was found in, seems likely that he will need placement on discharge. Full code
--- NOTE | 2017-06-20 13:19 | Progress Note ---
Progress Note Date of Service Jun 20, 2017. Progress Note Patient for arteriography with possible intervention today. I have discussed the risks options and benefits of the procedure with the patient. The patient understands the risks options and benefits and agrees to the procedure. I have examined the patient, reviewed the History & Physical and in the interval since the performance of the History & Physical I have noted the following changes of clinical significance: No changes noted
--- NOTE | 2017-06-20 14:11 | Progress Note ---
Subjective Date of Service: Jun 20, 2017. Subjective Pt evaluation today including: conversation w/ patient, physical exam, chart review, lab review pt seen in followup, on vanco. blood cultures negative, wound culture with MRSA. for vascular procedure later today. afebrile. states he is hungry. denies pain in foot. no drainage. tolerating abx. no abd pain, no n/v/d. all remaining ros reviewed and are negative Objective Vital Signs Date Time Temp Pulse Resp B/P (MAP) Pulse Ox O2 Delivery O2 Flow Rate FiO2 06/20/17 10:40 Oxymask 06/20/17 08:00 Room Air 06/20/17 07:48 36.6 78 20 187/64 (105) 98 Room Air 06/19/17 23:30 36.9 74 16 166/76 (106) 96 Room Air 06/19/17 23:15 Room Air 06/19/17 16:00 98 Room Air 06/19/17 14:44 36.8 77 20 175/70 (105) 98 Physical Exam General Appearance: WD/WN, no apparent distress Eyes: normal inspection, EOMI Neck: supple Respiratory/Chest: lungs clear, normal breath sounds, no respiratory distress Cardiovascular: regular rate, rhythm, no edema Abdomen: soft Extremities: non-tender, no pedal edema Neurologic/Psychiatric: alert, oriented x 3 Skin: normal color Comments: right foot dressing intact Laboratory Results Item Value Date Time Blood Culture - Final Complete 06/14/17 1053 Blood NO GROWTH Blood Culture - Final Complete 06/14/17 1106 Blood NO GROWTH Gram Stain - Final Complete 06/15/17 0923 Drainage - Surface Foot Left Last 24 Hours Test 06/20/17 10:03 Creatinine 1.13 mg/dl Est Creatinine Clear Calc Drug Dose 44.1 ml/min Estimated GFR () 66.9 Estimated GFR (Non- 57.7 Vancomycin Level Trough 18.1 mcg/ml Assessment and Plan (1) Foot ulcer Assessment & Plan: await OR findings, may require debridement, continue vanco for now. will follow.
[2017-06-20] MEDS ORDERED: IODIXANOL (VISIPAQUE) 270 MG/ML 150ML IV ONE (17:16)
[2017-06-20] MEDS ORDERED: LIDOCAINE HCL 1% 20 ML VIAL INJ ONE (17:16)
--- NOTE | 2017-06-20 17:21 | [facility] Post Operative Brief Note ---
Immediate Operative Summary Operative Date Jun 20, 2017. Pre-Operative Diagnosis PAD LLE foot wounds Post-Operative Diagnosis Same Procedure(s) Performed Left Lower Extremity Angiogram Ultrasound Localization of Right Femoral Artery Percutaneous Transluminal Angioplasty of Popliteal, Distal Superficial Femoral Artery Mechanical Closure of Right Femoral Artery Surgeon Vivienne Civil Laboratory Technician Surgeon(s) None Estimated Blood Loss 20 Findings occluded pop and infrapopliteal arteries. Popliteal opened, distal arteries could not be crossed. Better doppler at ankle post procedure. Specimens None Anesthesia local with sedation Complication(s) None Disposition Recovery Room / PACU
[2017-06-20] MEDS ORDERED: LABETALOL HCL IV 5 MG/ML 20ML IV PRN (17:30)
[2017-06-20] MEDS ORDERED: ATROPINE SULFATE 0.1 MG/ML 5ML SYR IV PRN (17:30)
[2017-06-20] MEDS ORDERED: EpHEDrine SULFATE INJ 50 MG/ML AMP IV PRN (17:30)
[2017-06-20] MEDS ORDERED: FENTANYL CITRATE INJ 50 MCG/1 ML 2 ML VIAL IV PRN (17:30)
[2017-06-20] MEDS ORDERED: HYDROmorphone INJ 1 MG/ML SYR IV PRN (17:30)
[2017-06-20] MEDS ORDERED: ONDANSETRON INJ 2 MG/ML 2 ML VIAL IV PRN (17:30)
[2017-06-20] MEDS ORDERED: MEPERIDINE HCL 25 MG/ML CARP IV PRN (17:30)
--- NOTE | 2017-06-20 17:35 | [facility] Operative Report ---
Operative Report Operative Date Jun 20, 2017. Pre-Operative Diagnosis PAD LLE foot wounds Post-Operative Diagnosis Same Procedure(s) Performed Left Lower Extremity Angiogram Ultrasound Localization of Right Femoral Artery Percutaneous Transluminal Angioplasty of Popliteal, Distal Superficial Femoral Artery Mechanical Closure of Right Femoral Artery Surgeon Vivienne Heading Repairer Surgeon(s) None Estimated Blood Loss 20 Findings Better doppler post procedure. Infrapop occlusions still persist but popliteal artery now patent Specimens None Anesthesia local with sedation Complication(s) None Disposition Recovery Room / PACU Indications This is an 86-year-old gentleman with gangrene of toes of left foot. He was found to have a popliteal artery occlusion on ultrasound. Arteriography and possible intervention is recommended to increase the flow to his foot prior to having surgical debridement or amputation of his toes. I have discussed the risks options and benefits of the procedure with the patient. The patient understands the risks options and benefits and agrees to the procedure. Description of Procedure The patient was taken to the angiogram suite and placed in supine position. Both groins were then prepped and draped in a sterile manner. Due to difficulty in feeling the pulse in the right groin ultrasound was used to locate the right common femoral artery. The artery was patent with good flow noted. With the help of ultrasound the artery was punctured and a 5 Faroese sheath inserted. Using 035 Glidewire and a rim catheter the left iliac was cannulated from the right side. Hand injection then done showed that the left common iliac, external iliac, common femoral artery, and profunda femoral arteries to be patent. The origin of the superficial femoral artery on the left side was also patent. Using a stiffened glidewire and a quick cross, the quick cross was advanced down to the common femoral artery side. Arteriography was then performed of the lower extremity of the left side. This showed the popliteal to be occluded at the adductor hiatus with reconstitution of the popliteal artery just proximal to the anterior tibial artery takeoff. The anterior tibial artery is occluded at its entirety. There was a reconstitution of the peroneal in the upper third of the calf. The posterior tibial artery was also totally occluded. The distal peroneal was patent and gave collaterals at the ankle down to the foot. We then reinserted the stiffened Glidewire. The quick cross was removed. The 5 Faroese sheath was exchanged for a 6 Faroese destination. A longer quick cross and a 035 wire was then used to cross the popliteal lesion. This crossed without difficulty. Multiple attempts with the the 035 wire as well as an 014 wire and an 014 quick cross were performed to cross the peroneal artery occlusion at it's proximal portion. This lesion could not be crossed. We decided at this point to dilate the popliteal artery to increase the inflow. The quick cross was removed over the 014 wire. A 5 x 6 balloon was inserted and the popliteal artery and distal superficial femoral artery was dilated without difficulty. Excellent results were seen. Good inflow down to the infrapopliteal arteries where the occlusions were located was noted. At that point it was decided to terminate the procedure. The destination sheath was pulled back to the right side. Hand injection showed the puncture be in the common femoral artery anteriorly. The puncture was then closed with a Star closure device. Adequate hemostasis was then noted. Dressings were applied. There was a much better Doppler signal heard in the lateral malleolar branch of the peroneal artery post dilatation. The patient left the angiogram suite in good condition and tolerated the procedure well. I attest to the content of the Intraoperative Record and any orders documented therein. Any exceptions are noted below.
--- NOTE | 2017-06-20 18:38 | Anesthesiology Progress Note ---
Anesthesia Post Op Note Date & Time Jun 20, 2017 at 18:38 Vital Signs Pain Intensity: 0 Vital Signs Past 12 Hours Date Time Temp Pulse Resp B/P (MAP) Pulse Ox O2 Delivery O2 Flow Rate FiO2 06/20/17 18:32 36.7 71 16 151/61 (91) 97 Nasal Cannula 2.0 06/20/17 18:15 81 16 169/71 (103) 97 Nasal Cannula 2.0 06/20/17 18:10 36.6 89 16 179/73 99 Nasal Cannula 2 06/20/17 18:00 93 18 164/75 99 Nasal Cannula 2 06/20/17 17:50 93 15 173/79 100 Nasal Cannula 2 06/20/17 17:40 86 13 168/89 100 Oxymask 10 06/20/17 17:32 36.6 97 19 165/91 100 Oxymask 10 06/20/17 16:36 Room Air 06/20/17 15:23 36.7 82 22 164/63 (96) 96 Room Air 06/20/17 14:52 36.7 68 24 163/77 (105) 97 Room Air 06/20/17 10:40 Oxymask 06/20/17 08:00 Room Air 06/20/17 07:48 36.6 78 20 187/64 (105) 98 Room Air Notes Mental Status: alert / awake / arousable, participated in evaluation Pt Amnestic to Procedure: Yes Nausea / Vomiting: adequately controlled Pain: adequately controlled Airway Patency, RR, SpO2: stable & adequate BP & HR: stable & adequate Hydration State: stable & adequate Anesthetic Complications: no major complications apparent
[2017-06-20 18:58] LABS: CALCIUM 8.2 mg/dl (8.5-10.1); CREATININE 1.14 mg/dl (0.60-1.40); POTASSIUM 3.9 mmol/L (3.5-5.1)
[2017-06-21 08:02] VITALS: BP 174/70; PULSE 85; TEMP 36.8; O2SAT 97
--- NOTE | 2017-06-21 08:27 | Anesthesiology Progress Note ---
Anesthesia Post Op Note Date & Time Jun 21, 2017 at 08:26 Vital Signs Pain Intensity: 0.0 Vital Signs Past 12 Hours Date Time Temp Pulse Resp B/P (MAP) Pulse Ox O2 Delivery O2 Flow Rate FiO2 06/21/17 08:02 36.8 85 20 174/70 (104) 97 Nasal Cannula 1.0 06/20/17 22:50 36.8 81 22 169/83 (111) 98 Nasal Cannula 1.0 06/20/17 21:58 66 19 174/68 (103) 97 Nasal Cannula 2.0 06/20/17 21:00 97 Nasal Cannula 2.0 06/20/17 20:50 82 18 166/75 (105) 98 Nasal Cannula 2.0 Notes Pt Amnestic to Procedure: Yes Pt sleeping. Did not wake to evaluate
[2017-06-21] MEDS ORDERED: MAGNESIUM SULFATE 1GM / D5W 1 GM in PREMIXED IN D5W 100 ML IV ONE (08:30)
[2017-06-21] MEDS: HEPARIN SOD 5000 UNIT/0.5 ML CARP SQ SCH ×2 (09:00→21:00)
[2017-06-21 09:15] VITALS: BP 168/75; PULSE 99
[2017-06-21] MEDS: AMLODIPINE BESYLATE 5 MG TAB PO SCH (09:16)
[2017-06-21] MEDS: OXYBUTYNIN CHLORIDE 5 MG TAB PO SCH ×2 (09:16→22:49)
[2017-06-21] MEDS: MAGNESIUM OXIDE 400 MG TAB PO SCH ×2 (09:16→22:48)
[2017-06-21] MEDS: ACETYLCYSTEINE 600 MG CAP PO SCH (09:17)
[2017-06-21] MEDS: CARVEDILOL 25 MG TAB PO SCH ×2 (09:17→22:49)
[2017-06-21] MEDS: METHIMAZOLE 5 MG TAB PO SCH (09:17)
[2017-06-21] MEDS: TAMSULOSIN HCL 0.4 MG CAP PO SCH (09:18)
[2017-06-21] MEDS: HYDROCHLOROTHIAZIDE 25 MG TAB PO SCH (09:30)
[2017-06-21] MEDS: VANCOMYCIN INJ 1,000 MG in SODIUM CHLORIDE 0.9% 250ML 250 ML IV SCH (10:38)
--- NOTE | 2017-06-21 10:51 | Progress Note ---
Subjective Date of Service: Jun 21, 2017. Subjective Pt evaluation today including: conversation w/ patient, physical exam, chart review pt s/p vascular procedure, tolerated well. awaiting decision for debridement. remains on vanco, tolerating well. blood cultures negative. afebrile. no new labs. Objective Vital Signs Date Time Temp Pulse Resp B/P (MAP) Pulse Ox O2 Delivery O2 Flow Rate FiO2 06/21/17 09:15 99 168/75 (106) 06/21/17 08:02 36.8 85 20 174/70 (104) 97 Nasal Cannula 1.0 06/21/17 08:00 Nasal Cannula 2.0 06/20/17 22:50 36.8 81 22 169/83 (111) 98 Nasal Cannula 1.0 06/20/17 21:58 66 19 174/68 (103) 97 Nasal Cannula 2.0 06/20/17 21:00 97 Nasal Cannula 2.0 06/20/17 20:50 82 18 166/75 (105) 98 Nasal Cannula 2.0 06/20/17 19:50 36.8 72 20 162/63 (96) 98 Nasal Cannula 2.0 06/20/17 18:47 36.8 73 16 157/70 (99) 98 Nasal Cannula 2.0 06/20/17 18:32 36.7 71 16 151/61 (91) 97 Nasal Cannula 2.0 06/20/17 18:15 81 16 169/71 (103) 97 Nasal Cannula 2.0 06/20/17 18:10 36.6 89 16 179/73 99 Nasal Cannula 2 06/20/17 18:00 93 18 164/75 99 Nasal Cannula 2 06/20/17 17:50 93 15 173/79 100 Nasal Cannula 2 06/20/17 17:40 86 13 168/89 100 Oxymask 10 06/20/17 17:32 36.6 97 19 165/91 100 Oxymask 10 06/20/17 16:36 Room Air 06/20/17 15:23 36.7 82 22 164/63 (96) 96 Room Air 06/20/17 14:52 36.7 68 24 163/77 (105) 97 Room Air Laboratory Results Item Value Date Time Gram Stain - Final Complete 06/14/17 1000 Drainage - Surface Toe Left 1 Blood Culture - Final Complete 06/14/17 1053 Blood NO GROWTH Blood Culture - Final Complete 06/14/17 1106 Blood NO GROWTH Last 24 Hours Test 06/20/17 18:30 Sodium Level 139 mmol/L Potassium Level 3.9 mmol/L Chloride Level 111 mmol/L Carbon Dioxide Level 17 mmol/L Anion Gap 11.0 mmol/L Blood Urea Nitrogen 13 mg/dl Creatinine 1.14 mg/dl Est Creatinine Clear Calc Drug Dose 43.8 ml/min Estimated GFR () 66.2 Estimated GFR (Non- 57.1 BUN/Creatinine Ratio 11.8 Random Glucose 118 mg/dl Calcium Level 8.2 mg/dl Magnesium Level 1.4 mg/dl Assessment and Plan (1) Foot ulcer Assessment & Plan: may require debridement, continue vanco for now. will follow.
--- NOTE | 2017-06-21 15:54 | History & Physical Bridge Note ---
H&P Re-Evaluation Bridge Note: I have examined the patient, reviewed the History & Physical and in the interval since the performance of the History & Physical I have noted the following changes of clinical significance: Will take to OR today for Debridement left heel necrosis and left great toe necrosis.
[2017-06-21 16:00] VITALS: O2SAT 97
[2017-06-21 16:01] VITALS: BP 156/69; PULSE 80; O2SAT 97
--- NOTE | 2017-06-21 16:06 | Hospitalist Progress Note ---
Hospitalist Progress Note Date of Service Jun 21, 2017. Subjective Pt evaluation today including: conversation w/ patient, physical exam, chart review, lab review, review of inpatient medication list Voiding: bennett catheter in place Mr. Ramirez did not have any specific complaints this morning though he is tired of being in the hospital. He is not in any pain. He is to have a debridement of his toe today with orth. ROS Constitutional: no chills, aches, sweats or fever Respiratory: no sob,cough, sputum, or wheezing Cardiac: no chest pain, palpitations, edema, orthopnea or lightheadedness GI: no abdominal pain, nausea, vomiting, diarrhea or constipation : no dysuria or hesitancy Extremities: no joint pain or weakness Skin: no rash All other systems reviewed and negative Medications Medications Administered Medications (Trade) Dose Ordered Sig/Carina Route Start Time Stop Time Status Last Admin Dose Admin Acetaminophen (Tylenol Tab) 650 mg Q4H PRN PO 06/13/17 11:45 07/13/17 11:44 06/19/17 20:30 650 MG Sodium Chloride 1,000 ml @ 80 mls/hr [id number] IV 06/13/17 14:15 06/14/17 15:14 DC 06/14/17 03:05 80 MLS/HR Carvedilol (Coreg Tab) 25 mg BID PO 06/13/17 21:00 07/13/17 20:59 06/21/17 09:17 25 MG Oxybutynin Chloride (Ditropan Tab) 10 mg BID PO 06/13/17 21:00 07/13/17 20:59 06/21/17 09:16 10 MG Tamsulosin HCl (Flomax Cap) 0.4 mg DAILY PO 06/14/17 09:00 07/14/17 08:59 06/21/17 09:18 0.4 MG Methimazole (Methimazole Tab) 5 mg DAILY PO 06/14/17 09:00 07/14/17 08:59 06/21/17 09:17 5 MG Ceftriaxone Sodium 2000 mg/ Dextrose 70 ml @ 100 mls/hr Q24H IV 06/14/17 11:00 06/16/17 08:27 DC 06/15/17 11:09 100 MLS/HR Vancomycin HCl 2000 mg/Sodium Chloride 540 ml @ 200 mls/hr NOW STAT IV 06/14/17 10:43 06/14/17 13:24 DC 06/14/17 12:21 200 MLS/HR Heparin Sodium (Porcine) (Heparin Sq 5000 Unit/0.5ml) 5,000 unit Q12 SQ 06/14/17 21:00 07/14/17 20:59 06/19/17 20:35 5,000 UNIT Vancomycin HCl 1250 mg/Sodium Chloride 275 ml @ 125 mls/hr Q30H IV 06/15/17 18:00 06/16/17 09:40 DC 06/15/17 18:35 125 MLS/HR Sodium Chloride 1,000 ml @ 80 mls/hr [id number] IV 06/15/17 10:00 06/20/17 06:28 DC 06/20/17 02:16 80 MLS/HR Vancomycin HCl 1000 mg/Sodium Chloride 270 ml @ 125 mls/hr Q24H IV 06/16/17 10:00 07/26/17 09:59 06/21/17 10:38 125 MLS/HR Acetylcysteine (Acetylcysteine Cap) 600 mg Q12H PO 06/19/17 18:00 06/21/17 06:01 DC 06/21/17 09:17 600 MG Sodium Chloride 1,000 ml @ 77 mls/hr Q13H IV 06/20/17 11:00 06/20/17 20:00 DC 06/20/17 11:12 77 MLS/HR Sodium Bicarbonate 100 meq/Sodium Chloride 1,100 ml @ 80 mls/hr [id number] IV 06/20/17 11:00 06/20/17 20:00 DC 06/20/17 11:09 80 MLS/HR Lidocaine HCl (Xylocaine 1% Inj (Local)) 10 ml ONE ONCE INJ 06/20/17 17:16 06/20/17 17:17 DC 06/20/17 17:16 10 ML Heparin Sodium/ Sodium Chloride (Heparin Sod/Ns 2 Units/Ml) 240 unit ONE ONCE IV 06/20/17 17:16 06/20/17 17:17 DC 06/20/17 17:16 240 UNIT Iodixanol (Visipaque 150ml) 22,950 mg ONE ONCE IV 06/20/17 17:16 06/20/17 17:17 DC 06/20/17 17:16 22,950 MG Hydrochlorothiazide (Hydrochlorothiazide Tab) 12.5 mg DAILY PO 06/21/17 09:00 07/21/17 08:59 06/21/17 09:30 12.5 MG Amlodipine Besylate (Norvasc Tab) 5 mg QAM PO 06/21/17 09:00 07/21/17 08:59 06/21/17 09:16 5 MG Magnesium Sulfate 1 gm/Prmx 100 ml @ 100 mls/hr NOW ONCE IV 06/21/17 08:30 06/21/17 09:29 DC 06/21/17 09:16 100 MLS/HR Magnesium Oxide (Mag-Ox Tab) 400 mg BID PO 06/21/17 09:00 07/21/17 08:59 06/21/17 09:16 400 MG Objective Vital Signs Date Time Temp Pulse Resp B/P (MAP) Pulse Ox O2 Delivery O2 Flow Rate FiO2 06/21/17 09:15 99 168/75 (106) 06/21/17 08:02 36.8 85 20 174/70 (104) 97 Nasal Cannula 1.0 06/21/17 08:00 Nasal Cannula 2.0 06/20/17 22:50 36.8 81 22 169/83 (111) 98 Nasal Cannula 1.0 06/20/17 21:58 66 19 174/68 (103) 97 Nasal Cannula 2.0 06/20/17 21:00 97 Nasal Cannula 2.0 06/20/17 20:50 82 18 166/75 (105) 98 Nasal Cannula 2.0 06/20/17 19:50 36.8 72 20 162/63 (96) 98 Nasal Cannula 2.0 06/20/17 18:47 36.8 73 16 157/70 (99) 98 Nasal Cannula 2.0 06/20/17 18:32 36.7 71 16 151/61 (91) 97 Nasal Cannula 2.0 06/20/17 18:15 81 16 169/71 (103) 97 Nasal Cannula 2.0 06/20/17 18:10 36.6 89 16 179/73 99 Nasal Cannula 2 06/20/17 18:00 93 18 164/75 99 Nasal Cannula 2 06/20/17 17:50 93 15 173/79 100 Nasal Cannula 2 1/16/18 17:40 86 13 168/89 100 Oxymask 10 06/20/17 17:32 36.6 97 19 165/91 100 Oxymask 10 06/20/17 16:36 Room Air Physical Exam Notes: General: no distress Eyes: normal inspection, PERLL Respiratory: chest non tender, clear to auscultation, normal breath sounds, no respiratory distress, no accessory muscle use Cardiac: regular rate and rhythm, no rub or gallop, no murmur, no edema, no jvd GI/: active bowel sounds, no abd pain or tenderness, soft, non distended Extremities: normal range of motion, normal strength, non tender Neuro/Psych: alert and oriented x 3, normal mood and affect Skin: normal color, dry, left foot dressing dry and intact, dressing right groin dry and intact without edema or bleeding, lower extremities warm Laboratory Results Last 24 Hours Test 06/20/17 18:30 Sodium Level 139 mmol/L Potassium Level 3.9 mmol/L Chloride Level 111 mmol/L Carbon Dioxide Level 17 mmol/L Anion Gap 11.0 mmol/L Blood Urea Nitrogen 13 mg/dl Creatinine 1.14 mg/dl Est Creatinine Clear Calc Drug Dose 43.8 ml/min Estimated GFR () 66.2 Estimated GFR (Non- 57.1 BUN/Creatinine Ratio 11.8 Random Glucose 118 mg/dl Calcium Level 8.2 mg/dl Magnesium Level 1.4 mg/dl Assessment and Plan Mr. Ramirez is an 86 year old man here for confusion, weakness, dehydration, left toe infection, ARF, and rhabdomyolysis ARF, dehydration - Initial creat was 3.6, trended down to baseline - IVF discontinued - repeat prp in am - Bennett in place - may want to consider discontinuing tomorrow as he will have gotten through his two procedures and it has been in since admission. Left great toe arterial wound infection, foot ulcers, L buttocks deep tissue injury and R buttocks stage 3 pressure ulcer as well as L heel unstageable pressure ulcer and L medial 1st metatarsal deep tissue injury. - Wound care - consulted ortho - debridement today in [place] - Foot x ray did not show osteomyelitis -Culture of great toe grew MRSA - continue vanco per ID recommendation, abx started 06/14 - ID consulted PVD - multiple areas of arterial occlusion on LE arterial US, no palpable pedal pulses, - consulted vascular surgery - arteriogram and angioplasty 1/16 Rhabdomyolysis - Initial CK 2600 and trended down - resolved HTN - Cont Carvedilol Hyperthyroidism - TSH .005, T4 1.79 - resumed methimazole - dtr noted this was actually deliberately stopped because labs looked good and then f/u labs after cessation looked good as well, clinically doing well. f/u - will repeat TSH in am as it has been over a week since restarted. BPH - cont Flomax Anemia - no evidence of bleeding - suspected chronic - will trend Dispo: PT/OT ordered, CM. Given patient's situation he was found in, seems likely that he will need placement on discharge. Full code
[2017-06-21] MEDS ORDERED: FLUMAZENIL 0.1 MG/1 ML 10 ML VIAL IV PRN (18:30)
[2017-06-21] MEDS ORDERED: NALOXONE HCL 0.4 MG/1 ML VIAL/CARP IV PRN (18:30)
[2017-06-21] MEDS ORDERED: EpHEDrine SULFATE INJ 50 MG/ML AMP IV PRN (18:30)
[2017-06-21] MEDS ORDERED: MEPERIDINE HCL 25 MG/ML CARP IV PRN (18:30)
[2017-06-21] MEDS ORDERED: FENTANYL CITRATE INJ 50 MCG/1 ML 2 ML VIAL IV PRN (18:30)
[2017-06-21] MEDS ORDERED: ATROPINE SULFATE 0.1 MG/ML 5ML SYR IV PRN (18:30)
[2017-06-21] MEDS ORDERED: ONDANSETRON INJ 2 MG/ML 2 ML VIAL IV PRN (18:30)
[2017-06-21] MEDS ORDERED: OXYCODONE HCL IR 5 MG TAB (IMMEDIATE RELEASE) PO PRN (18:30)
[2017-06-21] MEDS ORDERED: LABETALOL HCL IV 5 MG/ML 20ML IV PRN (18:30)
[2017-06-21] MEDS ORDERED: PHENYLEPHRINE 100MCG/ML 5ML SYR IV PRN (18:30)
[2017-06-21] MEDS ORDERED: BUPIVACAINE 0.5 % 5 MG/1 ML MPF 30ML VIAL ONE (19:26)
[2017-06-21] MEDS ORDERED: LIDOCAINE HCL 1% 20 ML VIAL ONE (19:26)
[2017-06-21] MEDS ORDERED: BACITRACIN 50000 UNIT VIAL ONE (19:27)
[2017-06-21] MEDS ORDERED: FENTANYL CITRATE INJ 50 MCG/1 ML 2 ML VIAL ONE (20:03)
[2017-06-21] MEDS ORDERED: PROPOFOL IV EMULSION 10 MG/ML 20 ML VIAL IV ONE (20:32)
[2017-06-21] MEDS ORDERED: SUCCINYLCHOLINE 100MG/5ML SYR IV ONE (20:32)
[2017-06-21] MEDS ORDERED: LIDOCAINE HCL 2% 2 ML VIAL (20MG/ML) ONE (20:32)
[2017-06-21] MEDS ORDERED: ONDANSETRON INJ 2 MG/ML 2 ML VIAL ONE (20:33)
--- NOTE | 2017-06-21 21:24 | [facility] Post Operative Brief Note ---
Immediate Operative Summary Operative Date Jun 21, 2017. 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 Varghese Medical Anthropology Director Surgeon(s) None Estimated Blood Loss 1cc Findings see dict Specimens A. 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 Abscess left great toe - routine - Gram stain, aerobic/anaerobic, C+S Drains Iodoform gauze 1st MTP joint Anesthesia GETT w/ local Complication(s) None Disposition Recovery Room / PACU
[2017-06-21] MEDS ORDERED: LABETALOL HCL IV 5 MG/ML 20ML IV ONE (22:12)
--- NOTE | 2017-06-21 22:25 | Anesthesiology Progress Note ---
Anesthesia Post Op Note Date & Time Jun 21, 2017 at 22:20 Vital Signs Pain Intensity: 0.0 Vital Signs Past 12 Hours Date Time Temp Pulse Resp B/P (MAP) Pulse Ox O2 Delivery O2 Flow Rate FiO2 06/21/17 22:15 74 20 164/57 98 Nasal Cannula 4 06/21/17 22:05 84 20 167/72 98 Nasal Cannula 4 06/21/17 21:55 74 20 171/78 99 Oxymask 10 06/21/17 21:45 77 20 169/62 99 Oxymask 10 06/21/17 21:35 81 16 181/78 96 Oxymask 10 06/21/17 21:28 36.4 83 16 174/70 96 Oxymask 10 06/21/17 18:08 36.9 81 20 164/62 (96) 99 Nasal Cannula 3 06/21/17 16:01 80 19 156/69 (98) 97 Nasal Cannula 2.0 06/21/17 16:00 97 Nasal Cannula 1.0 Notes Mental Status: alert / awake / arousable, participated in evaluation Pt Amnestic to Procedure: Yes Nausea / Vomiting: adequately controlled Pain: adequately controlled Airway Patency, RR, SpO2: stable & adequate BP & HR: stable & adequate, see Notes Hydration State: stable & adequate Anesthetic Complications: no major complications apparent The patient did well. During the surgery, he was noted to have multiple PVCs and dropped beats on the rhythm strip. A 12 lead EKG was done in PACU and found an accelerated junctional rhythm with multiple PVCs at rate of 88. His blood pressure is elevated which is his baseline, but his other vital signs are stable. He is awake and comfortable. I spoke to Dr. Sheth from internal medicine and she will follow the patient on the floor.
--- NOTE | 2017-06-21 22:34 | OPERATIVE REPORT ---
DATE OF OPERATION: 06/21/2017 PREOPERATIVE DIAGNOSES: 1. Left great toe gangrene distally. 2. Dry gangrene of the left heel. 3. Eschar medial first metatarsophalangeal joint, left foot. POSTOPERATIVE DIAGNOSES: 1. Left great toe gangrene distal. 2. Dry gangrene in the left heel. 3. Abscessed distal great toe. 4. 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 5. Eschar first metatarsophalangeal joint. PROCEDURE: 1. Irrigation and debridement, left great toe, skin, subcutaneous tissue and fascia. 2. Evacuation abscess distal left great toe. 3. Irrigation and debridement, first metatarsophalangeal joint. 4. Excision of gouty tophus, first metatarsophalangeal joint. 5. Debridement, eschar skin and subcutaneous tissue of the left heel. 6. Debridement, bone first metatarsal head. SURGEON: Shawn Varghese DO. CLOTH MEASURER: None. ANESTHESIA: General endotracheal tube with local anesthetic. SPECIMENS: Aerobic, anaerobic, Gram stain cultures of the distal great toe and gouty tophus for pathology from the first metatarsophalangeal joint and first metatarsal head. DRAINS: 1/2 inch iodoform gauze first metatarsophalangeal joint, left foot. COMPLICATIONS: None. BLOOD LOSS: 1 mL. PERTINENT HISTORY: This is an 86-year-old gentleman who has had progressive ongoing Heel discoloration and eschar with eschar formation and dry gangrene of the heel and the distal left great toe. The patient had been admitted on 06/13/2017 with a chief complaint of altered mental status. He had progressive confusion and weakness. He was disheveled and covered in urine and feces and they picked him up at his home. He was admitted with acute renal failure, dehydration, rhabdomyolysis, hypertension, hyperthyroidism, foot ulcers with necrosis, anemia. The patient had optimization of his medical condition. I was then scheduled for surgery as indicated. All potential risks, benefits, complications, alternatives, rehab, potential for incomplete relief of symptoms, need for further surgery, DVT, PE, , persistent pain, swelling, scarring, weakness, neurovascular injury, wound complications, need for further amputation were discussed with the patient. The patient decided to proceed with the procedure as indicated. DESCRIPTION OF THE PROCEDURE: The patient was taken to the operative suite and placed supine on the operating room table. After review of the consent and identification of proper operative site, the patient was then anesthetized. Endotracheal tube was placed. Left lower extremity was then sterilely prepped and draped in usual fashion, elevated and partially exsanguinated with an Esmarch tourniquet applied at the level of the ankle over a surgical towel. A 15 blade scalpel was then used to debride the dry gangrene and eschar from the distal aspect of the left great toe. After debridement of the eschar, subcutaneous tissue, skin and fascia, there was noted to be a focus of abscess in the distal aspect left great toe. This was cultured, aerobic, anaerobic, Gram stain, which was then sent for specimen. There was no exposed bone of the left distal medial left great toe; however, very little healthy appearing soft tissue remained intact over the distal medial aspect of left great toe. Next, a 15 blade scalpel was then used to excise the dry eschar over the medial aspect of the first metatarsal head. There was noted to be white chalky powder present. This was noted to be most likely gouty tophus. This was debrided with first rongeur and then curette into the first metatarsophalangeal joint and then also into the first metatarsal head. Gouty tophus was then sent for specimen to pathology. After the gouty tophus had been sharply excised, a new 15 blade scalpel was then used to debride the dry gangrene, eschar skin and subcutaneous tissue from the plantar and posterior aspect of the heel. Approximately a 3 cm diameter area of involvement was then debrided. Some punctate bleeding was encountered; however, there was also some evidence caseative necrosis. Next, copious amounts of sterile normal saline with bacitracin irrigation was performed of the left great toe, the first metatarsophalangeal joint and the heel ulcer area. Once this was completed, a 1/2 inch iodoform gauze drain was then placed in the first metatarsophalangeal joint extending through a small stab incision dorsal medial aspect of the mid foot. Next, the area of skin deficiency over the first metatarsal head was then loosely closed using interrupted 4-0 nylon sutures. Next, an approximately 15 mL of 0.5% Marcaine plain was injected in the partial mid foot block on the left foot followed by application of a sterile lightly compressive dressing consisting of Xeroform gauze, sterile 4 x 4's, ABD pad and cast padding overwrapped with a 4 inch Luis Miguel wrap. The tourniquet was released. The patient was awakened and taken to recovery in stable condition. I attest to the content of the Intraoperative Record and any orders documented therein. Any exception s are noted below.
[2017-06-21 22:57] VITALS: BP 152/71; PULSE 86; TEMP 36.8; O2SAT 96
--- NOTE | 2017-06-22 00:05 | Progress Note ---
Progress Note Date of Service Jun 21, 2017. 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
[2017-06-22 00:40] LABS: CALCIUM 8.3 mg/dl (8.5-10.1); CREATININE 1.19 mg/dl (0.60-1.40); POTASSIUM 4.1 mmol/L (3.5-5.1)
[2017-06-22] MEDS: MAGNESIUM SULFATE 1GM / D5W 1 GM in PREMIXED IN D5W 100 ML IV SCH ×2 (02:29→04:04)
[2017-06-22 06:51] VITALS: BP 149/67; PULSE 80; TEMP 36.7; O2SAT 96
[2017-06-22 07:26] LABS: HEMATOCRIT 27.7 % (42-52); HEMOGLOBIN 9.5 g/dL (14.0-18.0); MEAN CELL VOLUME 88.2 fL (80-100); MEAN CORPUSCULAR HEMOGLOBIN 30.3 pg (25-34); MEAN CORPUSCULAR HGB CONC 34.3 g/dl (32-36); MEAN PLATELET VOLUME 9.3 fL (7.4-10.4); PLATELET COUNT 254 K/uL (130-400); RED CELL DISTRIBUTION WIDTH SD 45.1 fL (36.4-46.3); WHITE BLOOD COUNT 8.08 K/uL (4.8-10.8)
--- NOTE | 2017-06-22 07:45 | DIAGNOSTIC IMAGING REPORT ---
CHEST ONE VIEW PORTABLE HISTORY: 86 years-old Male new hypoxia and abn breath sounds acute hypoxia COMPARISON: None available TECHNIQUE: Portable AP view of the chest FINDINGS: Cardiac silhouette is upper limits of normal in size. Atherosclerosis of the aorta. No pneumothorax. There is pulmonary vascular congestion with interstitial coarsening within a perihilar and bibasilar predominant distribution. Trace fluid within the minor fissure. Additionally, there is moderate right hemidiaphragmatic elevation with patchy bibasilar opacities. No large pleural effusion. Degenerative changes are seen within the shoulders and spine. IMPRESSION: 1. Mild pulmonary edema. 2. Moderate right hemidiaphragm elevation with bibasilar opacities suggesting atelectasis or pneumonitis. The above report was generated using voice recognition software. It may contain grammatical, syntax or spelling errors. Electronically signed by: Alexis Hernandez M.D. 06/22/2017 7:43 AM Dictated Date/Time: 06/22/2017 7:40 AM
[2017-06-22 07:53] LABS: CALCIUM 8.5 mg/dl (8.5-10.1); CREATININE 1.15 mg/dl (0.60-1.40); POTASSIUM 3.8 mmol/L (3.5-5.1)
--- NOTE | 2017-06-22 08:28 | Orthopedic Progress Note ---
Orthopedic Progress Note Date of Service Jun 22, 2017. Subjective Post OP Day: 1 Reports: feeling well, pain controlled w PO medications, Denies: complaints Objective calves soft nontender, N/V intact, capillary refill less than 2 sec., dressing C /D/I, A&O x3, toes mobile Left foot: heel ulceration has been debrided with granulation tissue present. Dressing changed and adaptic cut to the size of the wound. The dorsal 1st MTP incision is well approximated. Minimal to no erythema. Bleeding from the dorsal packing site after ~6-8 inches were removed. The distal medial great toe has been debrided with granulation noted. Date Time Temp Pulse Resp B/P (MAP) Pulse Ox O2 Delivery O2 Flow Rate FiO2 06/22/17 06:51 36.7 80 18 149/67 (94) 96 Nasal Cannula 2.0 06/22/17 00:00 Nasal Cannula 2.0 06/21/17 22:57 36.8 86 20 152/71 (98) 96 Nasal Cannula 2.0 06/21/17 22:25 78 20 168/64 99 Nasal Cannula 4 06/21/17 22:15 74 20 164/57 98 Nasal Cannula 4 06/21/17 22:05 84 20 167/72 98 Nasal Cannula 4 06/21/17 21:55 74 20 171/78 99 Oxymask 10 06/21/17 21:45 77 20 169/62 99 Oxymask 10 06/21/17 21:35 81 16 181/78 96 Oxymask 10 06/21/17 21:28 36.4 83 16 174/70 96 Oxymask 10 06/21/17 18:08 36.9 81 20 164/62 (96) 99 Nasal Cannula 3 06/21/17 16:01 80 19 156/69 (98) 97 Nasal Cannula 2.0 06/21/17 16:00 97 Nasal Cannula 1.0 06/21/17 09:15 99 168/75 (106) Laboratory Results 24 Hours: Test 06/22/17 06:54 Hematocrit 27.7 % Hemoglobin 9.5 g/dL Assessment & Plan Assessment: POD #1 s/p 1. Irrigation and debridement, left great toe, skin, subcutaneous tissue and fascia. 2. Evacuation abscess distal left great toe. 3. Irrigation and debridement, first metatarsophalangeal joint. 4. Excision of gouty tophus, first metatarsophalangeal joint. 5. Debridement, eschar skin and subcutaneous tissue of the left heel. 6. Debridement, bone first metatarsal head. Plan: Dressing changed today. Dr. Smyth consult for possible irrigating wound vac for the heel ulceration. The dorsal packing will be removed tomorrow with dressing change. D/C is uncertain at this time. NWB LLE at all times.
--- NOTE | 2017-06-22 09:00 | Hospitalist Progress Note ---
Hospitalist Progress Note Date of Service Jun 22, 2017. Subjective Pt evaluation today including: conversation w/ patient, physical exam, chart review, lab review, review of studies Pain: None PO Intake: Good Voiding: bennett catheter in place The patient was seen and examined this morning. Pt reports doing well today although he is tired of being in the hospital and is saying "I'm going to get up and walk out of here". He does not normally wear supplemental O2, but is on 2L via NC, and has a bennett catheter in place. He has no acute complaints and denies any pain associated with his left foot or heel. Constitutional: No fever, No chills, No sweats Eyes: No worsening of vision ENT: No nasal symptoms, No tinnitus, No trouble swallowing Respiratory: No cough, No wheezing, No shortness of breath Cardiovascular: No chest pain, No edema Abdomen: No pain, No nausea, No vomiting, No diarrhea, No constipation Musculoskeletal: No joint pain, No swelling Male : + problem reported Neurologic: No weakness, No numbness/tingling Endo: No fatigue Skin: No rash, No itch Objective Vital Signs Date Time Temp Pulse Resp B/P (MAP) Pulse Ox O2 Delivery O2 Flow Rate FiO2 06/22/17 06:51 36.7 80 18 149/67 (94) 96 Nasal Cannula 2.0 06/22/17 00:00 Nasal Cannula 2.0 06/21/17 22:57 36.8 86 20 152/71 (98) 96 Nasal Cannula 2.0 06/21/17 22:25 78 20 168/64 99 Nasal Cannula 4 06/21/17 22:15 74 20 164/57 98 Nasal Cannula 4 06/21/17 22:05 84 20 167/72 98 Nasal Cannula 4 06/21/17 21:55 74 20 171/78 99 Oxymask 10 06/21/17 21:45 77 20 169/62 99 Oxymask 10 06/21/17 21:35 81 16 181/78 96 Oxymask 10 06/21/17 21:28 36.4 83 16 174/70 96 Oxymask 10 06/21/17 18:08 36.9 81 20 164/62 (96) 99 Nasal Cannula 3 06/21/17 16:01 80 19 156/69 (98) 97 Nasal Cannula 2.0 06/21/17 16:00 97 Nasal Cannula 1.0 06/21/17 09:15 99 168/75 (106) Physical Exam General Appearance: WD/WN, + mild distress Eyes: PERRL, EOMI ENT: hearing grossly normal, pharynx normal, + pertinent finding (poor dentition, MMM) Neck: supple, no JVD Respiratory/Chest: chest non-tender, no respiratory distress, no accessory muscle use, + pertinent finding (On 2 L via NC, Breath sounds diminshed slightly at bases with faint crackles, no wheeze or rales. ) Cardiovascular: regular rate, rhythm, no murmur Abdomen: normal bowel sounds, non tender, soft Extremities: non-tender, + pertinent finding (LLE wrapped with kerlix, covered with iodine, RLE in waffle boot. ) Neurologic/Psychiatric: alert, normal mood/affect, oriented x 3 Skin: normal color, warm/dry Notes: Back: sacral decubitus wound, grade 3, waffle mattress on bed for pressure offloading Laboratory Results Last 24 Hours Test 06/22/17 00:11 06/22/17 06:54 Sodium Level 139 mmol/L 141 mmol/L Potassium Level 4.1 mmol/L 3.8 mmol/L Chloride Level 110 mmol/L 110 mmol/L Carbon Dioxide Level 18 mmol/L 18 mmol/L Anion Gap 11.0 mmol/L 13.0 mmol/L Blood Urea Nitrogen 16 mg/dl 17 mg/dl Creatinine 1.19 mg/dl 1.15 mg/dl Est Creatinine Clear Calc Drug Dose 41.9 ml/min 43.4 ml/min Estimated GFR () 62.8 65.5 Estimated GFR (Non- 54.2 56.5 BUN/Creatinine Ratio 13.3 14.6 Random Glucose 127 mg/dl 121 mg/dl Calcium Level 8.3 mg/dl 8.5 mg/dl Magnesium Level 1.5 mg/dl Thyroid Stimulating Hormone (TSH) 0.016 uIu/ml White Blood Count 8.08 K/uL Red Blood Count 3.14 M/uL Hemoglobin 9.5 g/dL Hematocrit 27.7 % Mean Corpuscular Volume 88.2 fL Mean Corpuscular Hemoglobin 30.3 pg Mean Corpuscular Hemoglobin Concent 34.3 g/dl RDW Standard Deviation 45.1 fL RDW Coefficient of Variation 14.0 % Platelet Count 254 K/uL Mean Platelet Volume 9.3 fL Assessment and Plan Mr. Ramirez is an 86 year old man here for confusion, weakness, dehydration, left toe infection, ARF, and rhabdomyolysis Overnight events included hypoxia - CXR obtained showing mild pulmonary edema, moderate right hemidiaphragm elevation with bibasilar opacities suggesting atelectasis or pneumonitis. - supportive care with flutter/incentive spirometry - on 2 L currently and denies any respiratory sx. ARF, dehydration - Initial creat was 3.6, trended down to baseline 1.15, off IVFs, follow PRP - Bennett in place - pt is nonweight bearing on the left foot, so unable to remove the bennett at this point. Remove bennett marco a once ortho and PT/OT agree he is able to better ambulate to bathroom. Left great toe arterial wound infection, foot ulcers, L buttocks deep tissue injury and R buttocks stage 3 pressure ulcer as well as L heel unstageable pressure ulcer and L medial 1st metatarsal deep tissue injury. - Wound care consulted for heel ulceration - s/p I&D on 06/[address] Varghese - Foot x ray did not show osteomyelitis - Culture of great toe grew MRSA - continue vanco per ID recommendation, abx started 06/14 - continue for now, depending on length of time pt may require midline or PICC for continued infusions PVD - multiple areas of arterial occlusion on LE arterial US, no palpable pedal pulses, - consulted vascular surgery - arteriogram and angioplasty 06/20 Rhabdomyolysis - Initial CK 2600 and trended down - resolved HTN - Cont Carvedilol Hyperthyroidism - TSH 0.016 on repeat- resumed methimazole BPH - cont Flomax Anemia likely of chronic disease - no evidence of bleeding CODE STATUS: Full code Dispo: PT/OT ordered, CM on board, referrals to [facility] and [facility] made, pt will require rehab after discharge, possibly early next week.
[2017-06-22 09:13] VITALS: BP 137/65; PULSE 76
[2017-06-22] MEDS: VANCOMYCIN INJ 1,000 MG in SODIUM CHLORIDE 0.9% 250ML 250 ML IV SCH (09:13)
[2017-06-22] MEDS: METHIMAZOLE 5 MG TAB PO SCH (09:14)
[2017-06-22] MEDS: AMLODIPINE BESYLATE 5 MG TAB PO SCH (09:14)
[2017-06-22] MEDS: OXYBUTYNIN CHLORIDE 5 MG TAB PO SCH ×2 (09:14→20:31)
[2017-06-22] MEDS: MAGNESIUM OXIDE 400 MG TAB PO SCH ×2 (09:15→20:31)
[2017-06-22] MEDS: TAMSULOSIN HCL 0.4 MG CAP PO SCH (09:16)
[2017-06-22] MEDS: HYDROCHLOROTHIAZIDE 25 MG TAB PO SCH (09:16)
[2017-06-22] MEDS: HEPARIN SOD 5000 UNIT/0.5 ML CARP SQ SCH ×2 (09:17→20:32)
--- NOTE | 2017-06-22 13:31 | Progress Note ---
Subjective Date of Service: Jun 22, 2017. Subjective s/p debridement, tolerated well. no f/c. tolerating vanco. Toe culture pending, blood cultures negative and final. Objective Vital Signs Date Time Temp Pulse Resp B/P (MAP) Pulse Ox O2 Delivery O2 Flow Rate FiO2 06/22/17 09:13 76 137/65 (89) 06/22/17 08:00 Nasal Cannula 2.0 06/22/17 06:51 36.7 80 18 149/67 (94) 96 Nasal Cannula 2.0 06/22/17 00:00 Nasal Cannula 2.0 06/21/17 22:57 36.8 86 20 152/71 (98) 96 Nasal Cannula 2.0 06/21/17 22:25 78 20 168/64 99 Nasal Cannula 4 06/21/17 22:15 74 20 164/57 98 Nasal Cannula 4 06/21/17 22:05 84 20 167/72 98 Nasal Cannula 4 06/21/17 21:55 74 20 171/78 99 Oxymask 10 06/21/17 21:45 77 20 169/62 99 Oxymask 10 06/21/17 21:35 81 16 181/78 96 Oxymask 10 06/21/17 21:28 36.4 83 16 174/70 96 Oxymask 10 06/21/17 18:08 36.9 81 20 164/62 (96) 99 Nasal Cannula 3 06/21/17 16:01 80 19 156/69 (98) 97 Nasal Cannula 2.0 06/21/17 16:00 97 Nasal Cannula 1.0 Laboratory Results Last 24 Hours Test 06/22/17 00:11 06/22/17 06:54 Sodium Level 139 mmol/L 141 mmol/L Potassium Level 4.1 mmol/L 3.8 mmol/L Chloride Level 110 mmol/L 110 mmol/L Carbon Dioxide Level 18 mmol/L 18 mmol/L Anion Gap 11.0 mmol/L 13.0 mmol/L Blood Urea Nitrogen 16 mg/dl 17 mg/dl Creatinine 1.19 mg/dl 1.15 mg/dl Est Creatinine Clear Calc Drug Dose 41.9 ml/min 43.4 ml/min Estimated GFR () 62.8 65.5 Estimated GFR (Non- 54.2 56.5 BUN/Creatinine Ratio 13.3 14.6 Random Glucose 127 mg/dl 121 mg/dl Calcium Level 8.3 mg/dl 8.5 mg/dl Magnesium Level 1.5 mg/dl Thyroid Stimulating Hormone (TSH) 0.016 uIu/ml White Blood Count 8.08 K/uL Red Blood Count 3.14 M/uL Hemoglobin 9.5 g/dL Hematocrit 27.7 % Mean Corpuscular Volume 88.2 fL Mean Corpuscular Hemoglobin 30.3 pg Mean Corpuscular Hemoglobin Concent 34.3 g/dl RDW Standard Deviation 45.1 fL RDW Coefficient of Variation 14.0 % Platelet Count 254 K/uL Mean Platelet Volume 9.3 fL Assessment and Plan (1) Foot ulcer Assessment & Plan: s/p debridement, continue vanco for now. will follow. likely d/c on po doxy.
--- NOTE | 2017-06-22 14:05 | Wound Consultation: Inpatient ---
Wound Consultation Date of Consultation: Jun 22, 2017. Attending Physician: Musa Aldrich MD, PhD Reason for Consultation: Postoperative wounds left foot History of Present Illness Patient currently is a poor historian and unable to offer any significant history due to his chronic mental status changes. Patient was apparently admitted to [facility] 9 days ago for further evaluation of confusion dehydration and rhabdomyolysis. Patient also has significant ulcerations to the right foot. Patient has since undergone revascularization of the right lower extremity along with surgical debridement of an abscess to the left foot including the left great toe and heel region. Patient currently does not appear to be in any significant distress. Patient is alert and does follow commands. No further history is obtainable at this time. Social History Smoking Status: Unknown if Ever Smoked Allergies Coded Allergies: Tramadol (Verified Allergy, Unknown, RASH, 06/13/17) Home Medications Scheduled Carvedilol (Coreg), 1 TAB PO BID Hydrochlorothiazide (Hydrochlorothiazide), 1 TAB PO DAILY Oxybutynin Chloride (Ditropan), 2 TAB PO BID Miscellaneous Medications Methimazole (Methimazole ) Tamsulosin HCl (Tamsulosin HCl) Inpatient Medications Current Inpatient Medications Medications (Trade) Dose Ordered Sig/Carina Route Start Time Stop Time Status Last Admin Dose Admin Acetaminophen (Tylenol Tab) 650 mg Q4H PRN PO 06/13/17 11:45 07/13/17 11:44 06/19/17 20:30 650 MG Al Hydrox/Mg Hydrox/Simethicone (Maalox Max Susp) 15 ml Q4H PRN PO 06/13/17 11:45 07/13/17 11:44 Magnesium Hydroxide (Milk Of Magnesia Susp) 30 ml Q6H PRN PO 06/13/17 11:45 07/13/17 11:44 Polyethylene (Miralax Powder Packet) 17 gm DAILY PRN PO 06/13/17 12:00 07/13/17 11:59 Ondansetron HCl (Zofran Inj) 4 mg Q6H PRN IV 06/13/17 11:45 07/13/17 11:44 Carvedilol (Coreg Tab) 25 mg BID PO 06/13/17 21:00 07/13/17 20:59 Future Hold 06/21/17 22:49 25 MG Oxybutynin Chloride (Ditropan Tab) 10 mg BID PO 06/13/17 21:00 07/13/17 20:59 06/22/17 09:14 10 MG Tamsulosin HCl (Flomax Cap) 0.4 mg DAILY PO 06/14/17 09:00 07/14/17 08:59 06/22/17 09:16 0.4 MG Methimazole (Methimazole Tab) 5 mg DAILY PO 06/14/17 09:00 07/14/17 08:59 06/22/17 09:14 5 MG Vancomycin HCl (Consult) 1 ea UD PRN N/A 06/14/17 10:45 07/14/17 10:44 Heparin Sodium (Porcine) (Heparin Sq 5000 Unit/0.5ml) 5,000 unit Q12 SQ 06/14/17 21:00 07/14/17 20:59 06/22/17 09:17 5,000 UNIT Vancomycin HCl 1000 mg/Sodium Chloride 270 ml @ 125 mls/hr Q24H IV 06/16/17 10:00 07/26/17 09:59 06/22/17 09:13 125 MLS/HR Hydrochlorothiazide (Hydrochlorothiazide Tab) 12.5 mg DAILY PO 06/21/17 09:00 07/21/17 08:59 06/22/17 09:16 12.5 MG Amlodipine Besylate (Norvasc Tab) 5 mg QAM PO 06/21/17 09:00 07/21/17 08:59 06/22/17 09:14 5 MG Magnesium Oxide (Mag-Ox Tab) 400 mg BID PO 06/21/17 09:00 07/21/17 08:59 06/22/17 09:15 400 MG Oxycodone HCl (Roxicodone Immediate Rel Tab) 1 tab for pain rated 1-5 2 t... Q4 PRN PO 06/21/17 18:30 07/05/17 18:29 Physical Exam Date Time Temp Pulse Resp B/P (MAP) Pulse Ox O2 Delivery O2 Flow Rate FiO2 06/22/17 09:13 76 137/65 (89) 06/22/17 08:00 Nasal Cannula 2.0 06/22/17 06:51 36.7 80 18 149/67 (94) 96 Nasal Cannula 2.0 06/22/17 00:00 Nasal Cannula 2.0 06/21/17 22:57 36.8 86 20 152/71 (98) 96 Nasal Cannula 2.0 06/21/17 22:25 78 20 168/64 99 Nasal Cannula 4 06/21/17 22:15 74 20 164/57 98 Nasal Cannula 4 06/21/17 22:05 84 20 167/72 98 Nasal Cannula 4 06/21/17 21:55 74 20 171/78 99 Oxymask 10 06/21/17 21:45 77 20 169/62 99 Oxymask 10 06/21/17 21:35 81 16 181/78 96 Oxymask 10 06/21/17 21:28 36.4 83 16 174/70 96 Oxymask 10 06/21/17 18:08 36.9 81 20 164/62 (96) 99 Nasal Cannula 3 06/21/17 16:01 80 19 156/69 (98) 97 Nasal Cannula 2.0 06/21/17 16:00 97 Nasal Cannula 1.0 General: The patient is lying in a hospital bed in no distress. Alert, cooperative and appropriate to all questions. HEENT: Pupils equal and reactive to light. Sclera clear, EOM intact. Neck: Supple, No JVD noted Chest: CTA in all pan. No deformity Heart: RRR without murmurs, S3, S4, thrills, rubs or heaves Extremities: Left foot shows the presence of a postsurgical site on the dorsal medial aspect of the first metatarsal head with sutures in place and a drain proximal. The site measures 3 x 1 cm. The left heel demonstrates the presence of a postoperative debridement measuring 5.5 x 5.2 x 0.1 cm and an additional left great toe wound debridement measuring 4 x 2.3 x 0.1 cm. No Central slough is noted at the sites no significant eschar formation is present. No periwound erythema edema or active drainage is noted. Neurological: Alert and follows commands. No apparent focal deficits noted. Laboratory Results Last 24 Hours Test 06/22/17 00:11 06/22/17 06:54 Sodium Level 139 mmol/L 141 mmol/L Potassium Level 4.1 mmol/L 3.8 mmol/L Chloride Level 110 mmol/L 110 mmol/L Carbon Dioxide Level 18 mmol/L 18 mmol/L Anion Gap 11.0 mmol/L 13.0 mmol/L Blood Urea Nitrogen 16 mg/dl 17 mg/dl Creatinine 1.19 mg/dl 1.15 mg/dl Est Creatinine Clear Calc Drug Dose 41.9 ml/min 43.4 ml/min Estimated GFR () 62.8 65.5 Estimated GFR (Non- 54.2 56.5 BUN/Creatinine Ratio 13.3 14.6 Random Glucose 127 mg/dl 121 mg/dl Calcium Level 8.3 mg/dl 8.5 mg/dl Magnesium Level 1.5 mg/dl Thyroid Stimulating Hormone (TSH) 0.016 uIu/ml White Blood Count 8.08 K/uL Red Blood Count 3.14 M/uL Hemoglobin 9.5 g/dL Hematocrit 27.7 % Mean Corpuscular Volume 88.2 fL Mean Corpuscular Hemoglobin 30.3 pg Mean Corpuscular Hemoglobin Concent 34.3 g/dl RDW Standard Deviation 45.1 fL RDW Coefficient of Variation 14.0 % Platelet Count 254 K/uL Mean Platelet Volume 9.3 fL Assessment & Plan Assessment: Postoperative abscess site left foot Postsurgical sites from probable stage II pressure ulcerations in the face of peripheral vascular disease to the left heel and left great toe Plan: At this time no further debridement is indicated. Due to the shallow nature {0.1 cm} of these clean sites no VAC therapy is indicated today. The sites will be managed with Aquasol AG and gauze changed on a daily basis. Patient will continue to be monitored during his hospital course and further evaluated in the outpatient clinic upon discharge.
[2017-06-22 15:24] VITALS: BP_SYST 160; BP_SYST 174; BP_DIAS 73; PULSE 74; TEMP 36.9; O2SAT 98
[2017-06-22 23:43] VITALS: BP 175/71; PULSE 90; TEMP 36.8; O2SAT 98
[2017-06-23 07:23] VITALS: BP 161/76; PULSE 86; TEMP 36.7; O2SAT 95
[2017-06-23 07:41] LABS: HEMATOCRIT 29.7 % (42-52); HEMOGLOBIN 10.1 g/dL (14.0-18.0); MEAN CELL VOLUME 87.9 fL (80-100); MEAN CORPUSCULAR HEMOGLOBIN 29.9 pg (25-34); MEAN PLATELET VOLUME 9.3 fL (7.4-10.4); PLATELET COUNT 288 K/uL (130-400); RED CELL DISTRIBUTION WIDTH CV 13.9 % (11.5-14.5); RED CELL DISTRIBUTION WIDTH SD 44.6 fL (36.4-46.3); WHITE BLOOD COUNT 8.07 K/uL (4.8-10.8)
[2017-06-23 08:12] LABS: CALCIUM 8.8 mg/dl (8.5-10.1); CREATININE 1.13 mg/dl (0.60-1.40)
[2017-06-23 09:10] VITALS: BP 161/71; PULSE 90
[2017-06-23] MEDS: VANCOMYCIN INJ 1,000 MG in SODIUM CHLORIDE 0.9% 250ML 250 ML IV SCH (09:11)
[2017-06-23] MEDS: MAGNESIUM OXIDE 400 MG TAB PO SCH ×2 (09:12→20:04)
[2017-06-23] MEDS: METHIMAZOLE 5 MG TAB PO SCH (09:13)
[2017-06-23] MEDS: HYDROCHLOROTHIAZIDE 25 MG TAB PO SCH (09:13)
[2017-06-23] MEDS: TAMSULOSIN HCL 0.4 MG CAP PO SCH (09:14)
[2017-06-23] MEDS: OXYBUTYNIN CHLORIDE 5 MG TAB PO SCH ×2 (09:14→20:04)
[2017-06-23] MEDS: AMLODIPINE BESYLATE 5 MG TAB PO SCH (09:14)
[2017-06-23] MEDS: HEPARIN SOD 5000 UNIT/0.5 ML CARP SQ SCH ×2 (09:17→20:07)
--- NOTE | 2017-06-23 10:38 | Progress Note ---
Subjective Date of Service: Jun 23, 2017. Subjective pt comfortable, family at bedside. afebrile. remains on vanco tolerating well. Was seen by wound center, no need for vac, plan to follow for additional wound care post d/c. s/p rle revascularization, tolerated well. blood cultures negative and final. OR cultures from 06/21 negative, but multiple days of vanco prior. previous foot cultures with MRSA. Objective Vital Signs Date Time Temp Pulse Resp B/P (MAP) Pulse Ox O2 Delivery O2 Flow Rate FiO2 06/23/17 09:10 90 161/71 (101) 06/23/17 07:23 36.7 86 18 161/76 (104) 95 Room Air 06/23/17 00:00 Nasal Cannula 2.0 06/22/17 23:43 36.8 90 18 175/71 (105) 98 Nasal Cannula 3.0 06/22/17 20:00 Nasal Cannula 2.0 06/22/17 16:00 Nasal Cannula 2.0 06/22/17 15:24 36.9 74 16 174/73 (106) 98 Room Air 3.0 160/73 (102) Physical Exam General Appearance: WD/WN, no apparent distress Neck: supple Respiratory/Chest: normal breath sounds, no respiratory distress Neurologic/Psychiatric: alert Skin: normal color Laboratory Results Item Value Date Time Gram Stain - Final Complete 06/15/17922 Drainage - Surface Foot Left Gram Stain - Final Resulted 06/21/172039 Abscess Toe Left 1 Last 24 Hours Test 06/23/17 07:00 06/23/17 08:19 06/23/17 09:37 White Blood Count 8.07 K/uL Red Blood Count 3.38 M/uL Hemoglobin 10.1 g/dL Hematocrit 29.7 % Mean Corpuscular Volume 87.9 fL Mean Corpuscular Hemoglobin 29.9 pg Mean Corpuscular Hemoglobin Concent 34.0 g/dl RDW Standard Deviation 44.6 fL RDW Coefficient of Variation 13.9 % Platelet Count 288 K/uL Mean Platelet Volume 9.3 fL Sodium Level 139 mmol/L Potassium Level mmol/L mmol/L 3.8 mmol/L Chloride Level 108 mmol/L Carbon Dioxide Level 20 mmol/L Anion Gap 11.0 mmol/L Blood Urea Nitrogen 17 mg/dl Creatinine 1.13 mg/dl Est Creatinine Clear Calc Drug Dose 44.2 ml/min Estimated GFR () 66.9 Estimated GFR (Non- 57.7 BUN/Creatinine Ratio 14.6 Random Glucose 111 mg/dl Calcium Level 8.8 mg/dl Assessment and Plan (1) Foot ulcer Assessment & Plan: s/p debridement, continue vanco for now. will follow. likely d/c on po doxy x 4 weeks. can follow with ID at wound center as well post d/c. No contraindication to d/c from ID standpoint.
--- NOTE | 2017-06-23 13:12 | Orthopedic Progress Note ---
Orthopedic Progress Note Date of Service Jun 23, 2017. Subjective Post OP Day: 2 Reports: feeling well, pain controlled w PO medications, Denies: complaints, chest pain, SOB, calf pain Objective calves soft nontender, N/V intact, capillary refill less than 2 sec., incision C /D/I, A&O x3, toes mobile Great toe left foot: dorsal incision is well approximated and healing. No drainage noted. Distal ulceration with good granulation and Aquacel Ag dressing covering. The packing was removed from the dorsal foot-- ~5 more inches. All packing is now out. Heel wound is stable. Date Time Temp Pulse Resp B/P (MAP) Pulse Ox O2 Delivery O2 Flow Rate FiO2 06/23/17 09:10 90 161/71 (101) 06/23/17 08:00 Room Air 06/23/17 07:23 36.7 86 18 161/76 (104) 95 Room Air 06/23/17 00:00 Nasal Cannula 2.0 06/22/17 23:43 36.8 90 18 175/71 (105) 98 Nasal Cannula 3.0 06/22/17 20:00 Nasal Cannula 2.0 06/22/17 16:00 Nasal Cannula 2.0 06/22/17 15:24 36.9 74 16 174/73 (106) 98 Room Air 3.0 160/73 (102) Laboratory Results 24 Hours: Test 06/23/17 07:00 Hematocrit 29.7 % Hemoglobin 10.1 g/dL Assessment & Plan Assessment: POD #2 s/p 1. Irrigation and debridement, left great toe, skin, subcutaneous tissue and fascia. 2. Evacuation abscess distal left great toe. 3. Irrigation and debridement, first metatarsophalangeal joint. 4. Excision of gouty tophus, first metatarsophalangeal joint. 5. Debridement, eschar skin and subcutaneous tissue of the left heel. 6. Debridement, bone first metatarsal head. Plan: Daily dressing changes with Aquacel Ag cut to the size of the wounds and covered with gauze. Ortho to sign off. No further surgical tx at this time. F/U with Dr. Varghese's clinic in 1 week. NWB LLE at all times.
--- NOTE | 2017-06-23 13:13 | Consultant Recommendations ---
Bulkhead Carpenter Recommendations Date of Service Jun 23, 2017. Bulkhead Carpenter Recommendations ACTIVITY RECOMMENDATIONS: Limitations: No weight bearing to affected limb at all times. SPECIAL CARE INSTRUCTIONS: * Some drainage onto the dressing is normal and is no cause for alarm. * Some swelling is natural especially after walking. * When resting, keep your foot elevated above the level of your heart. * Call [facility] if you notice: -Increased drainage -Fever over 101 degrees F -Severe constant pain BANDAGE: * Daily dressing changes with Aquacel Ag cut to the size of the wound and gauze applied on top. Kerlix wrap over the gauze. FOLLOW UP VISIT WITH DR. EMANUEL If appointment is not already scheduled: Please call [facility] after you get home today to schedule a follow-up appointment for [address] Emanuel at .
[2017-06-23] MEDS: DOXYCYCLINE HYCLATE 100 MG CAP PO SCH ×2 (14:08→20:04)
[2017-06-23] MEDS: ACETAMINOPHEN 325 MG TAB PO PRN ×2 (14:10→21:14)
--- NOTE | 2017-06-23 15:21 | Hospitalist Progress Note ---
Hospitalist Progress Note Date of Service Jun 23, 2017. Subjective Pt evaluation today including: conversation w/ patient, physical exam, chart review, lab review, review of inpatient medication list Voiding: no voiding problems Mr. Ramirez does not have complaints this morning. He has agreed to go to rehab following discharge. ROS Constitutional: no chills, aches, sweats or fever Respiratory: no sob,cough, sputum, or wheezing Cardiac: no chest pain, palpitations, edema, orthopnea or lightheadedness GI: no abdominal pain, nausea, vomiting, diarrhea or constipation : no dysuria or hesitancy Extremities: no joint pain or weakness Skin: no rash All other systems reviewed and negative Medications Medications Administered Medications (Trade) Dose Ordered Sig/Carina Route Start Time Stop Time Status Last Admin Dose Admin Acetaminophen (Tylenol Tab) 650 mg Q4H PRN PO 06/13/17 11:45 07/13/17 11:44 06/23/17 14:10 650 MG Sodium Chloride 1,000 ml @ 80 mls/hr [id number] IV 06/13/17 14:15 06/14/17 15:14 DC 06/14/17 03:05 80 MLS/HR Carvedilol (Coreg Tab) 25 mg BID PO 06/13/17 21:00 07/13/17 20:59 Future Hold 06/21/17 22:49 25 MG Oxybutynin Chloride (Ditropan Tab) 10 mg BID PO 06/13/17 21:00 07/13/17 20:59 06/23/17 09:14 10 MG Tamsulosin HCl (Flomax Cap) 0.4 mg DAILY PO 06/14/17 09:00 07/14/17 08:59 06/23/17 09:14 0.4 MG Methimazole (Methimazole Tab) 5 mg DAILY PO 06/14/17 09:00 07/14/17 08:59 06/23/17 09:13 5 MG Ceftriaxone Sodium 2000 mg/ Dextrose 70 ml @ 100 mls/hr Q24H IV 06/14/17 11:00 06/16/17 08:27 DC 06/15/17 11:09 100 MLS/HR Vancomycin HCl 2000 mg/Sodium Chloride 540 ml @ 200 mls/hr NOW STAT IV 06/14/17 10:43 06/14/17 13:24 DC 06/14/17 12:21 200 MLS/HR Heparin Sodium (Porcine) (Heparin Sq 5000 Unit/0.5ml) 5,000 unit Q12 SQ 06/14/17 21:00 07/14/17 20:59 06/23/17 09:17 5,000 UNIT Vancomycin HCl 1250 mg/Sodium Chloride 275 ml @ 125 mls/hr Q30H IV 06/15/17 18:00 06/16/17 09:40 DC 06/15/17 18:35 125 MLS/HR Sodium Chloride 1,000 ml @ 80 mls/hr [id number] IV 06/15/17 10:00 06/20/17 06:28 DC 06/20/17 02:16 80 MLS/HR Vancomycin HCl 1000 mg/Sodium Chloride 270 ml @ 125 mls/hr Q24H IV 06/16/17 10:00 06/23/17 13:09 DC 06/23/17 09:11 125 MLS/HR Acetylcysteine (Acetylcysteine Cap) 600 mg Q12H PO 06/19/17 18:00 06/21/17 06:01 DC 06/21/17 09:17 600 MG Sodium Chloride 1,000 ml @ 77 mls/hr Q13H IV 06/20/17 11:00 06/20/17 20:00 DC 06/20/17 11:12 77 MLS/HR Sodium Bicarbonate 100 meq/Sodium Chloride 1,100 ml @ 80 mls/hr [id number] IV 06/20/17 11:00 06/20/17 20:00 DC 06/20/17 11:09 80 MLS/HR Lidocaine HCl (Xylocaine 1% Inj (Local)) 10 ml ONE ONCE INJ 06/20/17 17:16 06/20/17 17:17 DC 06/20/17 17:16 10 ML Heparin Sodium/ Sodium Chloride (Heparin Sod/Ns 2 Units/Ml) 240 unit ONE ONCE IV 06/20/17 17:16 06/20/17 17:17 DC 06/20/17 17:16 240 UNIT Iodixanol (Visipaque 150ml) 22,950 mg ONE ONCE IV 06/20/17 17:16 06/20/17 17:17 DC 06/20/17 17:16 22,950 MG Hydrochlorothiazide (Hydrochlorothiazide Tab) 12.5 mg DAILY PO 06/21/17 09:00 07/21/17 08:59 06/23/17 09:13 12.5 MG Amlodipine Besylate (Norvasc Tab) 5 mg QAM PO 06/21/17 09:00 07/21/17 08:59 06/23/17 09:14 5 MG Magnesium Sulfate 1 gm/Prmx 100 ml @ 100 mls/hr NOW ONCE IV 06/21/17 08:30 06/21/17 09:29 DC 06/21/17 09:16 100 MLS/HR Magnesium Oxide (Mag-Ox Tab) 400 mg BID PO 06/21/17 09:00 07/21/17 08:59 06/23/17 09:12 400 MG Bupivacaine HCl (Marcaine 0.5% MPF Inj) 30 ml STK-MED ONCE .ROUTE 06/21/17 19:26 06/21/17 19:27 DC 06/21/17 21:00 10 ML Bacitracin (Bacitracin Inj) 50,000 units STK-MED ONCE .ROUTE 06/21/17 19:27 06/21/17 19:28 DC 06/21/17 21:00 50,000 UNITS Magnesium Sulfate 1 gm/Prmx 100 ml @ 100 mls/hr Q1H IV 06/22/17 01:45 06/22/17 03:44 DC 06/22/17 04:04 100 MLS/HR Doxycycline Hyclate (Vibramycin Cap) 100 mg BID PO 06/23/17 14:00 07/03/17 13:59 06/23/17 14:08 100 MG Objective Vital Signs Date Time Temp Pulse Resp B/P (MAP) Pulse Ox O2 Delivery O2 Flow Rate FiO2 06/23/17 09:10 90 161/71 (101) 06/23/17 08:00 Room Air 06/23/17 07:23 36.7 86 18 161/76 (104) 95 Room Air 06/23/17 00:00 Nasal Cannula 2.0 06/22/17 23:43 36.8 90 18 175/71 (105) 98 Nasal Cannula 3.0 06/22/17 20:00 Nasal Cannula 2.0 06/22/17 16:00 Nasal Cannula 2.0 06/22/17 15:24 36.9 74 16 174/73 (106) 98 Room Air 3.0 160/73 (102) Physical Exam Notes: General: no distress Eyes: normal inspection, PERLL Respiratory: chest non tender, clear to auscultation, normal breath sounds, no respiratory distress, no accessory muscle use Cardiac: regular rate and rhythm, no rub or gallop, no murmur, no edema, no jvd GI/: active bowel sounds, no abd pain or tenderness, soft, non distended Extremities: normal range of motion, normal strength, non tender Neuro/Psych: alert and oriented x 3, normal mood and affect Skin: normal color, dry, dressing on left toe is draining blood Laboratory Results Last 24 Hours Test 06/23/17 07:00 06/23/17 08:19 06/23/17 09:37 White Blood Count 8.07 K/uL Red Blood Count 3.38 M/uL Hemoglobin 10.1 g/dL Hematocrit 29.7 % Mean Corpuscular Volume 87.9 fL Mean Corpuscular Hemoglobin 29.9 pg Mean Corpuscular Hemoglobin Concent 34.0 g/dl RDW Standard Deviation 44.6 fL RDW Coefficient of Variation 13.9 % Platelet Count 288 K/uL Mean Platelet Volume 9.3 fL Sodium Level 139 mmol/L Potassium Level mmol/L mmol/L 3.8 mmol/L Chloride Level 108 mmol/L Carbon Dioxide Level 20 mmol/L Anion Gap 11.0 mmol/L Blood Urea Nitrogen 17 mg/dl Creatinine 1.13 mg/dl Est Creatinine Clear Calc Drug Dose 44.2 ml/min Estimated GFR () 66.9 Estimated GFR (Non- 57.7 BUN/Creatinine Ratio 14.6 Random Glucose 111 mg/dl Calcium Level 8.8 mg/dl Assessment and Plan Mr. Ramirez is an 86 year old man here for confusion, weakness, dehydration, left toe infection, ARF, and rhabdomyolysis ARF, dehydration - Initial creat was 3.6, trended down to baseline - IVF discontinued - repeat prp in am - Diaz discontinued Left great toe arterial wound infection, foot ulcers, L buttocks deep tissue injury and R buttocks stage 3 pressure ulcer as well as L heel unstageable pressure ulcer and L medial 1st metatarsal deep tissue injury. - Wound care - consulted ortho - debridement 06/23 in [place] - Foot x ray did not show osteomyelitis -Culture of great toe grew MRSA - continue vanco per ID recommendation, abx started 06/14 - changed to doxycycline and will need 4 total weeks of abx - ID consulted PVD - multiple areas of arterial occlusion on LE arterial US, no palpable pedal pulses, - consulted vascular surgery - arteriogram and angioplasty 06/20 Rhabdomyolysis - Initial CK 2600 and trended down - resolved HTN - Cont Carvedilol Hyperthyroidism - TSH .005, T4 1.79 - resumed methimazole - dtr noted this was actually deliberately stopped because labs looked good and then f/u labs after cessation looked good as well, clinically doing well. f/u - TSH improving BPH - cont Flomax Anemia - no evidence of significant bleeding - suspected chronic - will trend Dispo: To [facility] likely tomorrow. Full code
[2017-06-23 15:47] VITALS: BP 148/66; PULSE 80; TEMP 36.7; O2SAT 96
[2017-06-23 23:20] VITALS: BP 171/69; PULSE 74; TEMP 37; O2SAT 95
[2017-06-24 00:42] VITALS: BP 167/63; PULSE 76; O2SAT 98
[2017-06-24 07:27] VITALS: BP 154/53; PULSE 54; TEMP 37; O2SAT 94
[2017-06-24] MEDS: ACETAMINOPHEN 325 MG TAB PO PRN (07:42)
[2017-06-24 07:43] LABS: HEMATOCRIT 29.1 % (42-52); MEAN CELL VOLUME 87.1 fL (80-100); MEAN CORPUSCULAR HEMOGLOBIN 29.9 pg (25-34); MEAN CORPUSCULAR HGB CONC 34.4 g/dl (32-36); MEAN PLATELET VOLUME 9.2 fL (7.4-10.4); PLATELET COUNT 276 K/uL (130-400); RED CELL DISTRIBUTION WIDTH CV 13.9 % (11.5-14.5); RED CELL DISTRIBUTION WIDTH SD 44.8 fL (36.4-46.3); WHITE BLOOD COUNT 7.92 K/uL (4.8-10.8)
[2017-06-24] MEDS: DOXYCYCLINE HYCLATE 100 MG CAP PO SCH (07:43)
[2017-06-24] MEDS: OXYBUTYNIN CHLORIDE 5 MG TAB PO SCH (07:43)
[2017-06-24] MEDS: METHIMAZOLE 5 MG TAB PO SCH (07:43)
[2017-06-24] MEDS: MAGNESIUM OXIDE 400 MG TAB PO SCH (07:43)
[2017-06-24] MEDS: TAMSULOSIN HCL 0.4 MG CAP PO SCH (07:44)
[2017-06-24] MEDS: HYDROCHLOROTHIAZIDE 25 MG TAB PO SCH (07:45)
[2017-06-24] MEDS: HEPARIN SOD 5000 UNIT/0.5 ML CARP SQ SCH (07:50)
[2017-06-24 08:17] LABS: CALCIUM 8.6 mg/dl (8.5-10.1); CREATININE 1.18 mg/dl (0.60-1.40); POTASSIUM 3.5 mmol/L (3.5-5.1)
[2017-06-24] MEDS: AMLODIPINE BESYLATE 5 MG TAB PO SCH (09:15)
[2017-06-24] MEDS ORDERED: MGNO400 PO (14:07)
[2017-06-24] MEDS ORDERED: NRV5 PO (14:07)
[2017-06-24] MEDS ORDERED: DXY100 PO (14:07)
[2017-06-24] MEDS ORDERED: RXC5 PO (14:07)
--- NOTE | 2017-06-24 14:08 | Discharge Instructions ---
Discharge Instructions Date of Service Jun 24, 2017. Admission Reason for Admission: Altered Mental Status Discharge Discharge Diagnosis / Problem: Left great toe arterial wound infection, foot ulcers, Discharge Goals Goal(s): Decrease discomfort, Improve function, Increase independence, Improve disease control, Improve nutritional status, Learn about illness, Diagnostic testing, Therapeutic intervention, Prevent Disease Progression, Specific goals Activity Recommendations Activity Level: OOB In Chair, Assistance Required Therapies: Physical Therapy, Occupational Therapy . Additional Information Patient informed of condition: Yes Advance Directives: No DNR: No Level of Care: Skilled Communicable Disease: Yes Prognosis: Other (guarded) Diaz Catheter: No Instructions / Follow-Up Instructions / Follow-Up you have Left great toe arterial wound infection, foot ulcers, L buttocks deep tissue injury and R buttocks stage 3 pressure ulcer you have Left medial 1st metatarsal deep tissue injury. consulted ortho - debridement 06[place]23 [place] per instruction by orthopedic service: Limitations: No weight bearing to affected limb at all times. SPECIAL CARE INSTRUCTIONS: * Some drainage onto the dressing is normal and is no cause for alarm. * Some swelling is natural especially after walking. * When resting, keep your foot elevated above the level of your heart. * Call [facility] if you notice: -Increased drainage -Fever over 101 degrees F -Severe constant pain BANDAGE: * Daily dressing changes with Aquacel Ag cut to the size of the wound and gauze applied on top. Kerlix wrap over the gauze. FOLLOW UP VISIT WITH DR. VARGHESE If appointment is not already scheduled: Please call [facility] [place] after you get home today to schedule a follow-up appointment for [address] Varghese at . 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 Palafox as instructed you have Rhabdomyolysis, ARF and dehydration you have Hyperthyroidism: TSH .005, T4 1.79 - resumed methimazole you need to follow up with pcp for all of the medical conditions - you need to follow up with your primary care physician in 1 week, - take medication as instructed, never overdose or any misuse, or take with alcohol, because misuse of medicine may cause organ damage or , call your primary care physician if have questions of medicaitons. - call your primary care physician OR go to local emergency room if has any fever/chill, chest pain, shortness of breathing, nausea/vomiting/abdominal pain , facial droop/slurry speech/local weakness, or if has any questions. - fall precaution - diet as instructed - you need to follow up with your subspecialists - you should understand that it is important to follow up the above instruction , and "not following the above instruction" may cause delayed or missed care of your medical conditions which may cause permanent organ damage and even . Current Hospital Diet Patient's current hospital diet: Regular Diet Discharge Diet Recommended Diet: Regular Diet Procedures Procedures Performed: Incision and drainage left great toe skin and subcutaneous tissue and fascia, evacuation of abscess left great toe, debridement 1st MTP joint left foot removal of gouty tophus, debridement eschar, skin and subcutaneous tissue left heel Pending Studies Studies pending at discharge: no Physician Orders On Transfer POLST Discussion: without POLST completion Laboratory Results Hemoglobin A1c Test 06/15/17 07:24 Range/Units Estimated Average Glucose 160 mg/dl Hemoglobin A1c 7.2 H 4.5-5.6 % Lipid Panel Test 06/15/17 07:24 Range/Units Triglycerides Level 117 0-150 mg/dl Cholesterol Level 89 0-200 mg/dl HDL Cholesterol 30 mg/dl Cholesterol/HDL Ratio 3.0 LDL Cholesterol, Calculated 36 mg/dl Medical Emergencies . Who to Call and When: Medical Emergencies: If at any time you feel your situation is an emergency, please call 911 immediately. . Non-Emergent Contact Non-Emergency issues call your: Primary Care Provider, Specialist (orthopedic) Call Non-Emergent contact if: you have a fever . . "Provider Documentation" section prepared by Musa Aldrich. . Hvac Refrigeration Technician Recommendations Hvac Refrigeration Technician Recommendations: ACTIVITY RECOMMENDATIONS: Limitations: No weight bearing to affected limb at all times. SPECIAL CARE INSTRUCTIONS: * Some drainage onto the dressing is normal and is no cause for alarm. * Some swelling is natural especially after walking. * When resting, keep your foot elevated above the level of your heart. * Call [facility] [place] if you notice: -Increased drainage -Fever over 101 degrees F -Severe constant pain BANDAGE: * Daily dressing changes with Aquacel Ag cut to the size of the wound and gauze applied on top. Kerlix wrap over the gauze. FOLLOW UP VISIT WITH DR. VARGHESE If appointment is not already scheduled: Please call [facility] [place] after you get home today to schedule a follow-up appointment for [address] Varghese at . Core Measure Problem Core Measures: None [place] Drug Monitoring Program Search Results: no issues identified
--- NOTE | 2017-06-24 14:51 | Discharge Summary ---
Discharge Summary Date of Service Jun 24, 2017. Discharge Summary Admission Date: Jun 13, 2017 at 11:04 Discharge Date: Jun 24, 2017 Discharge Disposition: halfway facility Principal Diagnosis: Left great toe arterial wound infection Problems/Secondary Diagnoses: foot ulcers, L buttocks deep tissue injury and R buttocks stage 3 pressure ulcer Left medial 1st metatarsal deep tissue injury. debridement 06/23 in [place] left great toe MRSA infection PVD, Rhabdomyolysis, ARF and dehydration Hyperthyroidism: Procedures: Left medial 1st metatarsal deep tissue injury, s/p debridement 06/23 in [place] Left lower extremity angiogram Consultations: Orthopedic, vascular surgeon, infectious disease Medication Reconciliation New Medications: Amlodipine Besylate (Amlodipine Besylate) 5 Mg Tab 5 MG PO QAM for 30 Days, #30 TAB Doxycycline Hyclate (Doxycycline Hyclate) 100 Mg Cap 100 MG PO BID for 23 Days, #46 CAP Magnesium Oxide (Magnesium-Oxide) 400 Mg Tab 400 MG PO BID for 3 Days, #6 TAB Oxycodone HCl (Oxycodone HCl) 5 Mg Tab 5-10 MG PO Q4 PRN for Pain for 3 Days, #12 TAB Continued Medications: Carvedilol (Coreg) 25 Mg Tab 1 TAB PO BID for 90 Days, #180 TAB 1 Refill Hydrochlorothiazide (Hydrochlorothiazide) 12.5 Mg Tab 1 TAB PO DAILY for 30 Days, #30 TAB 5 Refills Methimazole (Methimazole ) 5 Mg Tab Oxybutynin Chloride (Ditropan) 5 Mg Tab 2 TAB PO BID for 30 Days, #120 TAB 11 Refills Tamsulosin HCl (Tamsulosin HCl) 0.4 Mg Cap Discharge Exam Doing well, pain well controlled, was eating lunch, no complaining, left toe local wounds dressed was changed, no fever and chill Review of Systems: Constitutional: + weakness, No fever, No chills, No sweats, No weight loss, No fatigue, No problem reported Eyes: No worsening of vision, No eye pain, No redness, No discharge, No diplopia, No problem reported ENT: No hearing loss, No unusual epistaxis, No nasal symptoms, No sore throat, No tinnitus, No dental problems, No trouble swallowing, No problem reported Respiratory: No cough, No sputum, No wheezing, No shortness of breath, No dyspnea on exertion, No dyspnea at rest, No hemoptysis, No problem reported Cardiovascular: No chest pain, No orthopnea, No PND, No edema, No claudication, No palpitations, No problem reported Abdomen: No pain, No nausea, No vomiting, No diarrhea, No constipation, No GI bleeding, No problem reported Musculoskeletal: + joint pain Genitourinary - Male: No hematuria, No dysuria, No urinary frequency, No urinary urgency, No urinary hesitancy, No urinary retention, No urinary incontinence, No penile discharge, No lesions, No impotence, No problem reported Neurologic: No memory loss, No paralysis, No weakness, No numbness/tingling , No vertigo, No balance problems, No problem reported Psychiatric: No depression symptoms, No anhedonism, No anxiety, No insomnia , No substance abuse, No problem reported Endocrine: No fatigue, No excessive thirst, No excessive urination, No problem reported Physical Exam: General Appearance: WD/WN, no apparent distress, + thin, + pertinent finding (frail but pleasant) Eyes: normal inspection, PERRL ENT: normal ENT inspection, hearing grossly normal, TMs normal Neck: supple, no adenopathy Respiratory/Chest: chest non-tender, no respiratory distress, no accessory muscle use, + decreased breath sounds Cardiovascular: regular rate, rhythm, no edema Abdomen / GI: normal bowel sounds, non tender, soft, no organomegaly Extremities: normal inspection, no calf tenderness, + pertinent finding ( left big toe S/P debrismentation, local wound looks good) 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, no motor/sensory deficits , alert, normal mood/affect, normal reflexes, oriented x 3 Skin: normal color, warm/dry Hospital Course 86 year old man is admitted on 06/14/2017 for confusion, weakness, dehydration, left toe infection, ARF, and rhabdomyolysis ARF, dehydration , Initial creat was 3.6, was treated by IV fluid, trended down to baseline, Left great toe arterial wound infection, foot ulcers, L buttocks deep tissue injury and R buttocks stage 3 pressure ulcer as well as L heel unstageable pressure ulcer and L medial 1st metatarsal deep tissue injury, has been with wound care consulted ortho - debridement 06[place]23 [place], the care instruction please see below Culture of great toe grew MRSA - continue vanco per ID recommendation, abx started 06/14 - changed to doxycycline and will need 4 total weeks of abx, I dispensed a 18 days of doxy to continue, ID consulted PVD. multiple areas of arterial occlusion on LE arterial US, no palpable pedal pulses, arteriogram and angioplasty was done 06/20/2017 Rhabdomyolysis , resolved HTN - Cont Carvedilol Hyperthyroidism - TSH .005, T4 1.79 - resumed methimazole - dtr noted this was actually deliberately stopped because labs looked good and then f/u labs after cessation looked good as well, clinically doing well. f/u - TSH improving BPH - cont Flomax Anemia - no evidence of significant bleeding - suspected chronic - will trend Dispo: To [facility] , discussed with patient and daughter answer all questions Full code Instructions / Follow-Up you have Left great toe arterial wound infection, foot ulcers, L buttocks deep tissue injury and R buttocks stage 3 pressure ulcer you have Left medial 1st metatarsal deep tissue injury. consulted ortho - debridement 06/23 [place] per instruction by orthopedic service: Limitations: No weight bearing to affected limb at all times. SPECIAL CARE INSTRUCTIONS: * Some drainage onto the dressing is normal and is no cause for alarm. * Some swelling is natural especially after walking. * When resting, keep your foot elevated above the level of your heart. * Call [facility] if you notice: -Increased drainage -Fever over 101 degrees F -Severe constant pain BANDAGE: * Daily dressing changes with Aquacel Ag cut to the size of the wound and gauze applied on top. Kerlix wrap over the gauze. FOLLOW UP VISIT WITH DR. VARGHESE If appointment is not already scheduled: Please call [facility] after you get home today to schedule a follow-up appointment for [address] Varghese at . 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 Palafox as instructed you have Rhabdomyolysis, ARF and dehydration you have Hyperthyroidism: TSH .005, T4 1.79 - resumed methimazole you need to follow up with pcp for all of the medical conditions - you need to follow up with your primary care physician in 1 week, - take medication as instructed, never overdose or any misuse, or take with alcohol, because misuse of medicine may cause organ damage or , call your primary care physician if have questions of medicaitons. - call your primary care physician OR go to local emergency room if has any fever/chill, chest pain, shortness of breathing, nausea/vomiting/abdominal pain , facial droop/slurry speech/local weakness, or if has any questions. - fall precaution - diet as instructed - you need to follow up with your subspecialists - you should understand that it is important to follow up the above instruction , and "not following the above instruction" may cause delayed or missed care of your medical conditions which may cause permanent organ damage and even . Total Time Spent: Greater than 30 minutes This includes examination of the patient, discharge planning, medication reconciliation, and communication with other providers. Discharge Instructions Please refer to the electronic Patient Visit Report (Discharge Instructions) for additional information. Additional Copies To Shawn Varghese D.O.; Chris Martinez MD; Parth Huston M.D.; Justin Palafox M.D.
[2017-06-24 15:20] VITALS: BP 164/70; PULSE 65; TEMP 36.8; O2SAT 97
== END 2017-06-24 17:00 | DRG 264 ==
LOC: C.MED 11:04 → C.MS2W 06-15 00:18
PROVIDERS: ADMIT Family Medicine; ATTEND Hospitalist
PROC: 0QBP0ZZ Excision of Left Metatarsal, Open Approach (ICD-10-PCS; principal; 2017-06-20 14:15)
PROC: 0JBP0ZZ Excision of Left Lower Leg Subcutaneous Tissue and Fascia, Open Approach (ICD-10-PCS; principal; 2017-06-20 14:15)
DX: I73.9 Peripheral vascular disease, unspecified (principal); L89.153 Pressure ulcer of sacral region, stage 3; M62.82 Rhabdomyolysis; N17.9 Acute kidney failure, unspecified; I12.9 Hypertensive chronic kidney disease with stage 1 through stage 4 chronic kidney disease, or unspecified chronic kidney disease; L89.620 Pressure ulcer of left heel, unstageable; N40.0 Benign prostatic hyperplasia without lower urinary tract symptoms; E05.90 Thyrotoxicosis, unspecified without thyrotoxic crisis or storm; N18.9 Chronic kidney disease, unspecified; D63.1 Anemia in chronic kidney disease